=== PATIENT | female | born 1965 | race Caucasian/White ===

== ENCOUNTER 2016-07-04 00:38 | Emergency (ER) | payer SELFPAY ==
[~2016-07-04] VITALS: Ht 157.5 cm; Wt 62.0 kg
[~2016-07-04 00:38] MED LIST: DEPA500T OR; Z.0.NO CURRENT MEDS
[2016-07-04 00:40] VITALS: BP 126/71; PULSE 110; RESP 16; TEMP 98; O2SAT 98
[2016-07-04] MEDS ORDERED: DICL50TA3 PO (01:12)
[2016-07-04] MEDS ORDERED: AMOX500T PO (01:12)
[2016-07-04] MEDS ORDERED: ACETAMINOPHEN/HYDROcodone 325 MG/5 MG TAB PO ONE (01:15)
[2016-07-04] MEDS ORDERED: AMOXICILLIN (TRIHYDRATE) 500 MG CAP PO ONE (01:15)
--- NOTE | 2016-07-04 01:15 | PD ---
HPI Chief Complaint: Oral / Dental Pain or Problem Time Seen by Provider: 01:12 Travel History International Travel<30 days: No Contact w/Intl Traveler<30days: No Traveled to known affect area: No History of Present Illness HPI 50-year-old white female presents to emergency Department with complaints of dental pain. She states that she has had dental issues on and off for many years. She denies any fever or chills. She states there is increasing pain to her left lower mandible. [facility] Past Medical History Narrative Medical Seizure disorder Seizures: Yes (epilepsy, chronic) ?: Not Past Surgical History Surgical History: No Previous Surgery Social History Alcohol Use: Yes Tobacco Use: Yes Allergies-Medications (Allergen,Severity, Reaction): Coded Allergies: No Known Allergies (Verified , 07/04/16) Reported Meds & Prescriptions Reported Meds & Active Scripts Active Diclofenac Sodium DR (Diclofenac Sodium) 50 Mg Tabdr 50 Mg PO TID Amoxicillin 500 Mg Tab 1,000 Mg PO BID [id number] M1 500 Mg Tab 500 Mg OR Q12 30 Days Reported No Current Meds (Miscellaneous Medication) Misc Review of Systems Except as stated in HPI: all other systems reviewed are Neg Physical Exam Narrative GENERAL: Well-developed, well-nourished in no acute distress. Nontoxic appearing. HEAD: Normocephalic, atraumatic. EYES: Pupils equal round and reactive. Extraocular motions intact. No scleral icterus. No injection or drainage. ENT: TMs clear without erythema. The external auditory canals clear. Nose: clear . Posterior pharynx is pink and moist. No tonsillar edema or exudate. Uvula midline. Airway patent. The patient has severe diffuse periodontal disease with multiple, multiple dental caries. Positive gingival erythema and edema. No obvious single abscess NECK: Trachea midline.Supple, nontender, moves head freely. No central bony tenderness or spasm. CARDIOVASCULAR: Regular rate and rhythm without murmurs, gallops, or rubs. RESPIRATORY: Clear to auscultation. Breath sounds equal bilaterally. No wheezes , rales, or rhonchi. GASTROINTESTINAL: Abdomen soft, non-tender, nondistended. No hepato-splenomegaly , or palpable masses. No guarding. EXTREMITIES: No clubbing, cyanosis, or edema. No joint tenderness, effusion, or edema noted. BACK: Nontender without deformity or crepitance. No flank tenderness. Data Data Last Documented VS Vital Signs Date Time Temp Pulse Resp B/P Pulse Ox O2 Delivery O2 Flow Rate FiO2 07/04/16 00:40 98.0 110 16 126/71 98 Room Air Orders Amoxicillin (Trimox) (07/04/16 01:15) Acetamin-Hydrocod 325-5 Mg ([place] 5-325 (07/04/16 01:15) MDM Medical Decision Making Medical Screen Exam Complete: Yes Emergency Medical Condition: Yes Medical Record Reviewed: Yes Differential Diagnosis MDM: Moderate Differential diagnoses: Dental abscess, dental caries, osteitis, cellulitis Narrative Course Patient is given amoxicillin 500 mg and Lortab 5 a grams by mouth. This is dental caries, dentalgia Diagnosis Primary Impression: Dental caries Additional Impression: Dentalgia Patient Instructions: Narcotic given in the ED, General Instructions Additional Instructions: Rest. Saltwater gargles. Roe oil on cotton balls. Amoxicillin and diclofenac follow-up with a dentist as soon as possible. And return to the ER if any problems. Med/Other Pt SpecificInfo: Prescription(s) given Scripts Diclofenac Sodium DR 50 Mg Tabdr50 Mg PO TID #21 TAB Prov:Lilly Mathur MD 07/04/16 Amoxicillin 500 Mg Tab1,000 Mg PO BID #40 TAB Prov:Lilly Mathur MD 07/04/16 Disposition: 01 DISCHARGE HOME Condition: Stable Narciso Oneil Jul 04, 2016 01:14
== END 2016-07-04 02:05 | disposition home or self-care (01) ==
LOC: NEPB 00:38
DX: K02.9 Dental caries, unspecified (principal); Z72.0 Tobacco use
CPT/HCPCS: 99282

== ENCOUNTER 2017-07-22 09:08 | Emergency (ER) | payer SELFPAY ==
[~2017-07-22] VITALS: Ht 157.5 cm; Wt 62.0 kg
[~2017-07-22 09:08] MED LIST changes: +AMOX500T PO; +DICL50TA3 PO
[2017-07-22 09:11] VITALS: BP 133/62; PULSE 116; RESP 18; TEMP 100.5; O2SAT 98
--- NOTE | 2017-07-22 09:28 | PD ---
HPI Chief Complaint: Cold / Flu Symptoms Time Seen by Provider: 09:20 Travel History International Travel<30 days: No Contact w/Intl Traveler<30days: No Traveled to known affect area: No History of Present Illness HPI The patient is a 52-year-old female who presents to the emergency department for cough and cold symptoms of one days duration. The patient developed sore throat yesterday followed by headache, cough, nausea, body aches, and back pain. The cough is dry and nonproductive. She does have a history of tobacco use. She does endorse subjective fevers, chills, and sweats. She does complain of mild dysuria and some upper abdominal pain secondary to coughing. She denies any vomiting or diarrhea. She did have a sick contact last week, a child with influenza. She did not receive an influenza vaccination this year. Symptoms are moderate, there are no current alleviating or exacerbating factors. PFSH Past Medical History Diminished Hearing: No Seizures: Yes (epilepsy, chronic) Influenza Vaccination: No ?: Not Menopausal: Yes Tubal Ligation: Yes Past Surgical History Section: Yes Social History Alcohol Use: Yes Tobacco Use: Yes (06/05 ppd) Substance Use: No Allergies-Medications (Allergen,Severity, Reaction): Coded Allergies: No Known Allergies (Unverified , 07/22/17) Reported Meds & Prescriptions Reported Meds & Active Scripts Active No Active Prescriptions or Reported Medications Review of Systems Except as stated in HPI: all other systems reviewed are Neg General / Constitutional: Positive: Fever, Chills HENT: Positive: Headaches, Sore Throat, Congestion Cardiovascular: No: Chest Pain or Discomfort Respiratory: Positive: Cough Gastrointestinal: Positive: Nausea, Abdominal Pain (Upper abdominal pain secondary to coughing), No: Vomiting, Diarrhea Genitourinary: Positive: Dysuria Musculoskeletal: Positive: Myalgias Skin: No Rash Physical Exam Narrative GENERAL: Awake, alert, pleasant 52-year-old female who appears her stated age and is in no acute respiratory distress. SKIN: Focused skin assessment warm/dry. HEAD: Atraumatic. Normocephalic. EYES: Pupils equal and round. No scleral icterus. No injection or drainage. ENT: No nasal bleeding or discharge. Mild erythema but no exudate. TMs are translucent. EACs are clear. NECK: Trachea midline. No JVD. CARDIOVASCULAR: Regular, tachycardic with a heart rate of 110. RESPIRATORY: No accessory muscle use. Clear to auscultation. Breath sounds equal bilaterally. GASTROINTESTINAL: Abdomen soft, non-tender, nondistended. No rebound tenderness. MUSCULOSKELETAL: No obvious deformities. No clubbing. No cyanosis. No edema. NEUROLOGICAL: Awake and alert. No obvious cranial nerve deficits. Motor grossly within normal limits. Normal speech. PSYCHIATRIC: Appropriate mood and affect; insight and judgment normal. Data Data Last Documented VS Vital Signs Date Time Temp Pulse Resp B/P (MAP) Pulse Ox O2 Delivery O2 Flow Rate FiO2 07/22/17 10:43 16 07/22/17 09:11 100.5 116 133/62 (85) 98 Orders Orders Influenzae A/B Antigen (07/22/17 09:22) Chest, Single Ap (07/22/17 ) Urinalysis - C+S If Indicated (07/22/17 09:22) Acetaminophen (Tylenol) (07/22/17 09:30) Ondansetron Odt (Zofran Odt) (07/22/17 09:30) Prednisone (Deltasone) (07/22/17 10:00) Albuterol-Ipratropium Neb (Duoneb Neb) (07/22/17 10:00) Labs Laboratory Tests Test 07/22/17 09:11 Urine Color YELLOW Urine Turbidity CLEAR Urine pH 6.0 Urine Specific [place] 1.025 Urine Protein NEG mg/dL Urine Glucose (UA) NEG mg/dL Urine Ketones NEG mg/dL Urine Occult Blood MOD Urine Nitrite NEG Urine Bilirubin NEG Urine Urobilinogen 2.0 MG/DL Urine Leukocyte Esterase NEG Urine RBC 14 /hpf Urine WBC 1 /hpf Urine Squamous Epithelial Cells 1 /hpf Urine Bacteria RARE /hpf Urine Mucus FEW /lpf Microscopic Urinalysis Comment CULT NOT INDICATED MDM Medical Decision Making Medical Screen Exam Complete: Yes Emergency Medical Condition: Yes Medical Record Reviewed: Yes Interpretation(s) Laboratory Tests Test 07/22/17 09:11 Urine Color YELLOW Urine Turbidity CLEAR Urine pH 6.0 Urine Specific [place] 1.025 Urine Protein NEG mg/dL Urine Glucose (UA) NEG mg/dL Urine Ketones NEG mg/dL Urine Occult Blood MOD Urine Nitrite NEG Urine Bilirubin NEG Urine Urobilinogen 2.0 MG/DL Urine Leukocyte Esterase NEG Urine RBC 14 /hpf Urine WBC 1 /hpf Urine Squamous Epithelial Cells 1 /hpf Urine Bacteria RARE /hpf Urine Mucus FEW /lpf Microscopic Urinalysis Comment CULT NOT INDICATED Last Impressions Chest X-Ray 07/22/17 0000 Signed Impressions: Service Date/Time: Saturday, July 22, 2017 09:25 - CONCLUSION: 1. 6 mm smooth margined round nodule right lung. 2. No infiltrates seen. Kenney Bergeron MD Date/Time Source Procedure Growth Status 07/22/17 09:11 Nasal Aspirate Influenza Types A,B Antigen (GURPREET) - Final NEGATIVE FOR FLU A AND B ANTIGEN.... Complete Differential Diagnosis Differential diagnosis includes influenza, pneumonia, bronchitis, pyelonephritis , viral syndrome, URI, sepsis. Narrative Course Chest x-ray was obtained. Influenza screen was sent to lab. UA was sent to lab. The patient was administered Zofran 4 mg ODT and Tylenol 650 mg orally. Influenza screen is negative. Chest x-ray reveals 6 mm right round smooth lung nodule. UA is unremarkable. The patient has bronchitis and underlying viral syndrome, will be treated with prednisone, Zithromax, and albuterol inhaler. She is advised to follow-up with a primary physician. Return if symptoms worsen or progress. Stop smoking. Diagnosis Primary Impression: Bronchitis Additional Impression: Viral syndrome Patient Instructions: General Instructions Additional Instructions: Please provide a patient a copy of her chest x-ray results and lab results at discharge. Follow-up with her primary physician. Return if symptoms worsen or progress. Med/Other Pt SpecificInfo: Prescription(s) given Scripts Albuterol 8.5 GM Inh (Proair Hfa 8.5 GM Inh) 90 Mcg/Act Aer 2 PUFF INH Q6H Y for SHORTNESS OF BREATH, #1 INHALER 0 Refills 108 mcg/actuation Prov: Michael Covarrubias MD 07/22/17 Prednisone (Prednisone) 20 Mg Tab 40 MG PO DAILY for 5 Days, #10 TAB 0 Refills Take 40 mg (2 tablets) daily for 5 days Prov: Michael Covarrubias MD 07/22/17 Azithromycin (Zithromax Z-Dandy) 250 Mg Dspk 250 MG PO DIRECTED for Infection, #1 DSPK 0 Refills 500 MG (2 tabs) day 1, then 1 tab days 2-5. Prov: Michael Covarrubias MD 07/22/17 Disposition: 01 DISCHARGE HOME Condition: Stable Michael Covarrubias MD Jul 22, 2017 09:28
[2017-07-22] MEDS ORDERED: ONDANSETRON ODT 4 MG TAB PO ONE (09:30)
[2017-07-22] MEDS ORDERED: ACETAMINOPHEN 325 MG TAB PO ONE (09:30)
[2017-07-22 09:49] LABS: BACTERIA, URINE RARE /hpf; BILIRUBIN, URINE NEG (NEG); BLOOD, URINE MOD (NEG); GLUCOSE,URINE NEG (NEG); KETONE, URINE NEG (NEG); MUCUS URINE FEW /lpf (OCC); NITRITE,URINE NEG (NEG); SQUAMOUS EPITHELIAL CELL URINE 1 /hpf (0-5); URINE COLOR YELLOW (YELLW/STRAW); URINE LEUKOCYTE ESTERASE NEG (NEG)
[2017-07-22] MEDS ORDERED: RESP: ALBUTEROL 2.5 MG/IPRATROPIUM 0.5 MG NEB (SCH) NEB ONE (10:00)
[2017-07-22] MEDS ORDERED: predniSONE 20 MG TAB PO ONE (10:00)
--- NOTE | 2017-07-22 10:20 | RADRPT ---
EXAM DATE/TIME: 07/22/2017 09:25 [facility] COMPARISON: No previous studies available for comparison. INDICATIONS : Cough MEDICAL HISTORY : None. SURGICAL HISTORY : None. ENCOUNTER: Initial ACUITY: 1 day PAIN SCORE: 0/10 LOCATION: chest FINDINGS: A single view of the chest demonstrates the lungs to be symmetrically aerated. No infiltrate seen. 6 mm round nodule, probably calcified, in the right midlung.. No evidence of pleural effusion. The cardiomediastinal contours are unremarkable. Osseous structures are intact. CONCLUSION: 1. 6 mm smooth margined round nodule right lung. 2. No infiltrates seen. Kenney Bergeron MD on July 22, 2017 at 10:17 Board Certified Radiologist. This report was verified electronically.
[2017-07-22 10:43] VITALS: RESP 16
[2017-07-22] MEDS ORDERED: ALBUAER3 INH (11:24)
[2017-07-22] MEDS ORDERED: ZITHTAB PO (11:24)
[2017-07-22] MEDS ORDERED: PRED20 PO (11:24)
[2017-07-22 11:30] VITALS: BP 122/77; TEMP 97.8
== END 2017-07-22 11:40 | disposition home or self-care (01) ==
LOC: NEPD 09:08
DX: J40 Bronchitis, not specified as acute or chronic (principal); B34.9 Viral infection, unspecified; F17.200 Nicotine dependence, unspecified, uncomplicated
CPT/HCPCS: 71045; 81001; 87804; 94664; 99284; J7512

== ENCOUNTER 2017-09-17 10:42 | Inpatient (IN) | payer SELFPAY ==
[~2017-09-17 10:42] MED LIST changes: +ALBUAER3 INH; -AMOX500T PO; -DEPA500T OR; -DICL50TA3 PO; +PRED20 PO; -Z.0.NO CURRENT MEDS; +ZITHTAB PO
[2017-09-17 11:14] VITALS: BP 119/60; PULSE 74; RESP 18; TEMP 97.9; O2SAT 100
[2017-09-17] MEDS ORDERED: VALPROIC ACID 250 MG CAP PO ONE (12:00)
[2017-09-17] MEDS ORDERED: SODIUM CHLORIDE 0.9% FLUSH 10 ML FLUSH IVF PRN (12:00)
[2017-09-17 12:12] VITALS: O2SAT 96
--- NOTE | 2017-09-17 12:12 | PD ---
HPI Chief Complaint: Seizure Time Seen by Provider: 11:32 Travel History International Travel<30 days: No Contact w/Intl Traveler<30days: No Traveled to known affect area: No History of Present Illness HPI The patient is a 52-year-old female who presents to the emergency department for seizure. The patient has a history of seizures since age of 10, has undergone further workup in the past including MRI, CT, and EEG. The patient has been on multiple medications including Dilantin, phenobarbital, and Depakote. The patient states she had good results with Depakote at 300 mg twice a day. However, she stopped taking her medications secondary to insurance related issues. The patient states she was adopted from [facility] the age of 10, does not have a certificate and is unable to obtain assistance for insurance. The patient has been off of her medications for 2 years, states she had a seizure several months ago and then another seizure today. The patient had a witnessed seizure today that lasted approximately 1 minute while the patient was sitting down. The patient did not fall out of the chair or hit her head. However, she does note a left-sided headache that has been present for 2 days. She denies any photophobia, nausea, or vomiting. The patient denies any tongue trauma, does state her jaw is sore after having it clench. She also noted urinary incontinence. The seizure was witnessed by her daughter who is at bedside. PFSH Past Medical History Hx Anticoagulant Therapy: No Diminished Hearing: No Seizures: Yes (epilepsy, chronic) ?: Not Menopausal: Yes Tubal Ligation: Yes Past Surgical History Section: Yes Social History Alcohol Use: Yes (rarely) Tobacco Use: Yes (1/2 ppd) Substance Use: No Allergies-Medications (Allergen,Severity, Reaction): Coded Allergies: No Known Allergies (Unverified , 07/22/17) Reported Meds & Prescriptions Reported Meds & Active Scripts Active No Active Prescriptions or Reported Medications Review of Systems Except as stated in HPI: all other systems reviewed are Neg Eyes: No: Blurred Vision, Visual changes HENT: Positive: Headaches, Other (Jaw pain), No: Neck Pain Cardiovascular: No: Chest Pain or Discomfort Respiratory: No: Shortness of Breath Genitourinary: Positive: Incontinence Musculoskeletal: No: Myalgias, Arthralgias Neurologic: Positive: Seizures Physical Exam Narrative GENERAL: Awake, alert, nontoxic-appearing 52-year-old female who appears her stated age and is in no acute respiratory distress. SKIN: Focused skin assessment warm/dry. HEAD: Atraumatic. Normocephalic. EYES: Pupils equal and round. Pupils are 3 mm bilateral and reactive. ENT: No nasal bleeding or discharge. Mucous membranes pink and moist. No visible tongue laceration. The patient's jaw appears aligned that she is able to open and close the jaw. NECK: Trachea midline. No JVD. CARDIOVASCULAR: Regular rate and rhythm. No murmur appreciated. RESPIRATORY: No accessory muscle use. Clear to auscultation. Breath sounds equal bilaterally. GASTROINTESTINAL: Abdomen soft, non-tender, nondistended. No rebound tenderness. MUSCULOSKELETAL: No obvious deformities. No clubbing. No cyanosis. No edema. NEUROLOGICAL: Awake and alert. No obvious cranial nerve deficits. Motor grossly within normal limits. Normal speech. Nonfocal. Oriented 4. Follows commands without difficulty. Back: No tenderness over the thoracic or lumbar vertebrae. PSYCHIATRIC: Appropriate mood and affect; insight and judgment normal. Data Data Last Documented VS Vital Signs Date Time Temp Pulse Resp B/P (MAP) Pulse Ox O2 Delivery O2 Flow Rate FiO2 09/17/17 14:26 63 16 110/57 (74) 97 Room Air 09/17/17 11:14 97.9 Orders Orders Complete Blood Count With Diff (09/17/17 11:54) Valproic Acid (Depakene) (09/17/17 11:54) Blood Glucose (09/17/17 11:54) Ecg Monitoring (09/17/17 11:54) Iv Access Insert/Monitor (09/17/17 11:54) Oximetry (09/17/17 11:54) Comprehensive Metabolic Panel (09/17/17 11:54) Sodium Chloride 0.9% Flush (Ns Flush) (09/17/17 12:00) Valproic Acid (Depakene) (09/17/17 12:00) Ct Brain W/O Iv Contrast(Rout) (09/17/17 ) Mri Brain W/O Contrast (09/17/17 ) Aspirin Chew (Aspirin Chew) (09/17/17 14:45) Consult Neurology (09/17/17 ) Admit To Inpatient (09/17/17 ) Inpatient Certification (09/17/17 ) Admit Order (Ed Use Only) (09/17/17 15:01) Labs Laboratory Tests Test 09/17/17 12:09 White Blood Count 7.7 TH/MM3 Red Blood Count 4.99 MIL/MM3 Hemoglobin 13.7 GM/DL Hematocrit 41.3 % Mean Corpuscular Volume 82.7 FL Mean Corpuscular Hemoglobin 27.4 PG Mean Corpuscular Hemoglobin Concent 33.1 % Red Cell Distribution Width 14.6 % Platelet Count 247 TH/MM3 Mean Platelet Volume 7.3 FL Neutrophils (%) (Auto) 58.6 % Lymphocytes (%) (Auto) 34.4 % Monocytes (%) (Auto) 4.2 % Eosinophils (%) (Auto) 1.6 % Basophils (%) (Auto) 1.2 % Neutrophils # (Auto) 4.5 TH/MM3 Lymphocytes # (Auto) 2.7 TH/MM3 Monocytes # (Auto) 0.3 TH/MM3 Eosinophils # (Auto) 0.1 TH/MM3 Basophils # (Auto) 0.1 TH/MM3 CBC Comment DIFF FINAL Differential Comment Blood Urea Nitrogen 13 MG/DL Creatinine 0.65 MG/DL Random Glucose 76 MG/DL Total Protein 6.7 GM/DL Albumin 3.1 GM/DL Calcium Level 8.4 MG/DL Alkaline Phosphatase 78 U/L Aspartate Amino Transf (AST/SGOT) 21 U/L Alanine Aminotransferase (ALT/SGPT) 21 U/L Total Bilirubin 0.3 MG/DL Sodium Level 138 MEQ/L Potassium Level 4.3 MEQ/L Chloride Level 112 MEQ/L Carbon Dioxide Level 21.0 MEQ/L Anion Gap 5 MEQ/L Estimat Glomerular Filtration Rate 96 ML/MIN Valproic Acid (Depakene) Level 4 MCG/ML MDM Medical Decision Making Medical Screen Exam Complete: Yes Emergency Medical Condition: Yes Medical Record Reviewed: Yes Interpretation(s) Last Impressions Head CT 09/17/17 0000 Signed Impressions: Service Date/Time: Sunday, September 17, 2017 12:31 - CONCLUSION: There is an abnormal area of low-attenuation in the left parietal lobe. Given the appearance, this could represent cytotoxic edema related to recent ischemia. Alternatively it is possible this is a chronic finding. Consider either correlating with prior outside imaging studies to evaluate for chronicity of this finding or perform MRI for further characterization. Juan Mcnally MD Brain MRI 09/17/17 0000 Signed Impressions: Service Date/Time: Sunday, September 17, 2017 14:00 - CONCLUSION: 1. Acute infarct left parietal lobe. No midline shift or mass effect. 2. Nonspecific white matter changes. Tee Resendez MD Laboratory Tests Test 09/17/17 12:09 White Blood Count 7.7 TH/MM3 Red Blood Count 4.99 MIL/MM3 Hemoglobin 13.7 GM/DL Hematocrit 41.3 % Mean Corpuscular Volume 82.7 FL Mean Corpuscular Hemoglobin 27.4 PG Mean Corpuscular Hemoglobin Concent 33.1 % Red Cell Distribution Width 14.6 % Platelet Count 247 TH/MM3 Mean Platelet Volume 7.3 FL Neutrophils (%) (Auto) 58.6 % Lymphocytes (%) (Auto) 34.4 % Monocytes (%) (Auto) 4.2 % Eosinophils (%) (Auto) 1.6 % Basophils (%) (Auto) 1.2 % Neutrophils # (Auto) 4.5 TH/MM3 Lymphocytes # (Auto) 2.7 TH/MM3 Monocytes # (Auto) 0.3 TH/MM3 Eosinophils # (Auto) 0.1 TH/MM3 Basophils # (Auto) 0.1 TH/MM3 CBC Comment DIFF FINAL Differential Comment Blood Urea Nitrogen 13 MG/DL Creatinine 0.65 MG/DL Random Glucose 76 MG/DL Total Protein 6.7 GM/DL Albumin 3.1 GM/DL Calcium Level 8.4 MG/DL Alkaline Phosphatase 78 U/L Aspartate Amino Transf (AST/SGOT) 21 U/L Alanine Aminotransferase (ALT/SGPT) 21 U/L Total Bilirubin 0.3 MG/DL Sodium Level 138 MEQ/L Potassium Level 4.3 MEQ/L Chloride Level 112 MEQ/L Carbon Dioxide Level 21.0 MEQ/L Anion Gap 5 MEQ/L Estimat Glomerular Filtration Rate 96 ML/MIN Valproic Acid (Depakene) Level 4 MCG/ML Differential Diagnosis Differential diagnosis includes seizure, noncompliance, breakthrough seizure, hyponatremia, hypocalcemia, hypoglycemia, intracranial tumor, intracranial hemorrhage, subarachnoid hemorrhage. Narrative Course IV was established, labs are drawn and sent, and the patient was placed on cardiac telemetry monitoring and continuous pulse oximetry monitoring. The patient was administered Depakote [address] of the brain was obtained. CT the brain reveals either chronic finding in the left parietal region versus cytotoxic edema from recent ischemic event. Therefore, MRI of the brain was obtained. MRI of the brain reveals acute left parietal infarct. The patient will be admitted for further evaluation, may benefit from carotid ultrasound, evaluation of cholesterol, and echocardiogram. The patient was administered aspirin 162 mg orally. Physician Communication Physician Communication [facility] were paged for admission. I discussed the patient with Dr. Rajput who agrees with admission. Diagnosis Primary Impression: CVA (cerebral vascular accident) Qualified Codes: I63.9 - Cerebral infarction, unspecified Additional Impression: Seizure Admitting Information Admitting Physician Requests: Admit Scripts No Active Prescriptions or Reported Meds Condition: Stable Michael Covarrubias MD Sep 17, 2017 12:12
[2017-09-17 12:30] LABS: AUTOMATED NEUTROPHIL # 4.5 TH/MM3 (1.8-7.7); BASOPHIL # 0.1 TH/MM3 (0-0.2); BASOPHIL % 1.2 % (0.0-2.0); EOSINOPHIL # 0.1 TH/MM3 (0-0.4); EOSINOPHIL % 1.6 % (0.0-4.0); HEMATOCRIT 41.3 % (35.0-46.0); HEMOGLOBIN 13.7 GM/DL (11.6-15.3); LYMPH % 34.4 % (9.0-44.0); LYMPHOCYTE # 2.7 TH/MM3 (1.0-4.8); MEAN CELL VOLUME 82.7 FL (80.0-100.0); MEAN CORPUSCULAR HEMOGLOBIN 27.4 PG (27.0-34.0); MEAN CORPUSCULAR HGB CONC 33.1 % (32.0-36.0); MEAN PLATELET VOLUME 7.3 FL (7.0-11.0); MONO % 4.2 % (0.0-8.0); MONOCYTE # 0.3 TH/MM3 (0-0.9); NEUT % 58.6 % (16.0-70.0); PLATELET COUNT 247 TH/MM3 (150-450); RED BLOOD COUNT 4.99 MIL/MM3 (4.00-5.30); RED CELL DISTRIBUTION WIDTH 14.6 % (11.6-17.2); WHITE BLOOD COUNT 7.7 TH/MM3 (4.0-11.0)
[2017-09-17 12:44] LABS: ALBUMIN 3.1 GM/DL (3.4-5.0); ALT (GPT) 21 U/L (10-53); AST (GOT) 21 U/L (15-37); BLOOD UREA NITROGEN 13 MG/DL (7-18); CALCIUM 8.4 MG/DL (8.5-10.1); CHLORIDE 112 MEQ/L (98-107); CREATININE 0.65 MG/DL (0.50-1.00); GLOMERULAR FILTRATION RATE 96 ML/MIN (>89); GLUCOSE,RANDOM 76 MG/DL (74-106); SODIUM (NA) 138 MEQ/L (136-145)
[2017-09-17 12:52] LABS: ALKALINE PHOSPHATASE 78 U/L (45-117); TOTAL BILIRUBIN ADULT 0.3 MG/DL (0.2-1.0); TOTAL PROTEIN 6.7 GM/DL (6.4-8.2)
--- NOTE | 2017-09-17 13:02 | RADRPT ---
EXAM DATE/TIME: 09/17/2017 12:31 [facility] COMPARISON: No previous studies available for comparison. INDICATIONS : Seizure this morning. History of seizures. RADIATION DOSE: 56.35 CTDIvol (mGy) MEDICAL HISTORY : Seizures. SURGICAL HISTORY : None. ENCOUNTER: Initial ACUITY: 1 day PAIN SCALE: 0/10 LOCATION: cranial TECHNIQUE: Multiple contiguous axial images were obtained of the head. Using automated exposure control and adj ustment of the mA and/or kV according to patient size, radiation dose was kept as low as reasonably a chievable to obtain optimal diagnostic quality images. DICOM format image data is available electro nically for review and comparison. FINDINGS: CEREBRUM: Ventricles are within normal limits. There is a wedge-shaped area of low density in the left parietal mid and low convexity which extends to the cortical surface. No evidence of midline shift, mass les ion, hemorrhage or acute infarction. No extra-axial fluid collections are seen. POSTERIOR FOSSA: The cerebellum and brainstem demonstrate no acute abnormality. The 4th ventricle is midline. The ce rebellopontine angle is unremarkable. EXTRACRANIAL: Visualized sinuses are clear. SKULL: The calvaria is intact. No evidence of skull fracture. CONCLUSION: There is an abnormal area of low-attenuation in the left parietal lobe. Given the appearance, this co uld represent cytotoxic edema related to recent ischemia. Alternatively it is possible this is a clerical administrator peyton finding. Consider either correlating with prior outside imaging studies to evaluate for chronicit y of this finding or perform MRI for further characterization. Juan Mcnally MD on September 17, 2017 at 12:57 Board Certified Radiologist. This report was verified electronically.
[2017-09-17 14:26] VITALS: BP 110/57; PULSE 63; RESP 16; O2SAT 97
--- NOTE | 2017-09-17 14:34 | RADRPT ---
EXAM DATE/TIME: 09/17/2017 14:00 [facility] COMPARISON: CT BRAIN W/O CONTRAST, September 17, 2017, 12:31. INDICATIONS : Abnormal CT scan. Seizure. MEDICAL HISTORY : Seizures. SURGICAL HISTORY : section. Tubal ligation. ENCOUNTER: Initial ACUITY: 1 day PAIN SCORE: 0/10 LOCATION: head TECHNIQUE: Multiplanar, multisequence MRI of the brain was performed without contrast. FINDINGS: CEREBRUM: Acute infarct in the left posterior parietal lobe. The ventricles are normal for age. No evidence of midline shift, mass lesion or hemorrhage. No extraaxial fluid collections are seen. The pituitary gland and suprasellar cistern are normal in configuration. WHITE MATTER: Scattered foci of bright T2 signal abnormalities are seen in the white matter. POSTERIOR FOSSA: The cerebellum and brainstem are intact. The 4th ventricle is midline. The cerebellopontine angle is unremarkable. The cerebellar tonsils are normal in position. DIFFUSION IMAGING: There is restricted diffusion seen in left parietal lobe consistent with acute infarction. EXTRACRANIAL: The visualized portions of the orbits and paranasal sinuses are unremarkable. CONCLUSION: 1. Acute infarct left parietal lobe. No midline shift or mass effect. 2. Nonspecific white matter changes. Tee Resendez MD on September 17, 2017 at 14:29 Board Certified Radiologist. This report was verified electronically.
[2017-09-17] MEDS ORDERED: ASPIRIN 81 MG CHEW TAB CHEW ONE (14:45)
[2017-09-17 15:15] VITALS: O2SAT 97
[2017-09-17] MEDS ORDERED: GLUCAGON 1 MG/ML VIAL OTHER PRN (15:15)
[2017-09-17] MEDS ORDERED: DEXTROSE 50% IN WATER 50 ML VIAL(D50) IV PUSH PRN (15:15)
[2017-09-17] MEDS ORDERED: SODIUM CHLORIDE 0.9% FLUSH 10 ML FLUSH IV FLUSH PRN (15:15)
[2017-09-17] MEDS: SODIUM CHLOR 0.9% 1000 ML INJ 1,000 ML IV SCH (15:21)
[2017-09-17] MEDS: INSULIN ASPART SUPPLEMENTAL SCALE SQ SCH ×2 (17:00→21:00)
--- NOTE | 2017-09-17 17:04 | RADRPT ---
EXAM DATE/TIME: 09/17/2017 16:07 [place] COMPARISON: No previous studies available for comparison. INDICATIONS : CVA. MEDICAL HISTORY : Seizures. SURGICAL HISTORY : Tubal ligation. section. ENCOUNTER: Initial ACUITY: 1 day PAIN SCORE: 3/10 LOCATION: Bilateral neck PEAK SYSTOLIC VELOCITIES (cm/sec): ICA/CCA RATIO: Right: 1.0 Left: 1.3 ICA: Right: 102 Left: 123 CCA: Right: 99 Left: 97 ECA: Right: 90 Left: 68 VERTEBRAL: Right: 84 antegrade Left: 62 antegrade Elevated flow velocities and ICA/CCA ratios have been found to correlate with increased degrees of vessel stenosis, calculated as percentage of diameter relative to a normal segment of distal ICA/CCA FINDINGS: RIGHT CAROTID: No significant stenosis is visualized. The waveforms are within normal limits. LEFT CAROTID: No significant stenosis is visualized. The waveforms are within normal limits. VERTEBRAL ARTERIES: Antegrade flow is seen in both vertebral arteries. MISCELLANEOUS: None. CONCLUSION: Negative for hemodynamically significant stenosis Mark Correa MD FACR on September 17, 2017 at 17:02 Board Certified Radiologist. This report was verified electronically.
--- NOTE | 2017-09-17 17:08 | HHI.HP ---
[facility] No Primary Care Physician Admission Diagnosis CVA, seizure Diagnoses: Chief Complaint: Seizure Travel History International Travel<30 Days: No Contact w/Intl Traveler <30 Da: No Traveled to Known Affected Are: No History of Present Illness Patient is a very pleasant 52-year-old right-handed female with known history of seizure disorder since 10 years old petite mal type of seizure. Per patient when these occur usually with some incontinence. Patient has been off medication since 2009. In the past had been placed on Keppra, Dilantin, Depakote unclear why this was but patient has been off meds since 2009. No follow-up. Daughter is at bedside who is very involved with her care. She brought in her mom as she noted her mom to be having recently on and off seizure actually just blank stares that lasts for few minutes but more frequently for the past 2 months. However this morning patient had generalized tonic-clonic seizure while she was in a chair. Daughter from the other room heard unusual sounds coming from her mom's throat and when she came out to check on her witnessed generalized tonic convulsion activity. Patient however is amnesic of event. Patient was brought in here and up admitted for further evaluation. Patient denies any fever chest pain shortness of breath denies any recent URI symptoms diarrhea or urinary symptoms. Patient states a few days ago had some would have some left-sided headache of a "different type" . Otherwise no nausea or vomiting. Admitted for further evaluation. Review of Systems Constitutional: DENIES: Fever, Weight loss, Chills, Change in appetite Eyes: DENIES: Blurred vision, Double Vision Ears, nose, mouth, throat: DENIES: Tinnitus, Ear Pain, Epistaxis, Odynophagia Respiratory: DENIES: Cough, Hemoptysis, Sputum production, Shortness of breath Cardiovascular: DENIES: Chest pain, Palpitations, Dyspnea on Exertion, Lower Extremity Edema, Orthopnea Gastrointestinal: DENIES: Black stools, Bloody stools, Difficulty Swallowing, Anorexia Genitourinary: DENIES: Urgency, Hematuria, Vaginal discharge Musculoskeletal: DENIES: Joint pain, Stiffness Integumentary: DENIES: Pruritus Hematologic/lymphatic: DENIES: Bruising Immunologic/allergic: DENIES: Urticaria Neurologic: DENIES: Headache, Speech Problems, Tremor Psychiatric: DENIES: Suicidal Ideation, Homicidal Ideation Past Family Social History Past Medical History History of seizure disorder since 10 years of age but it mild type. She was tried on different kind of medications she is familiar with Keppra, Dilantin, Depakote but had been noncompliant for the past year now because of no insurance. Past Surgical History 2 sections and tubal ligation Reported Medications None currently. Allergies: Coded Allergies: No Known Allergies (Unverified , 07/22/17) Family History Family history positive for gastric cancer mother sister has some form of [employer] cancer Social History Smokes half to 1 pack per day very rare alcohol use Denies any substance abuse Physical Exam Vital Signs Vital Signs Date Time Temp Pulse Resp B/P (MAP) Pulse Ox O2 Delivery O2 Flow Rate FiO2 09/17/17 15:15 97 21 09/17/17 14:26 63 16 110/57 (74) 97 Room Air 09/17/17 12:12 96 Room Air 09/17/17 11:14 97.9 74 18 119/60 (79) 100 Physical Exam GENERAL: Awake alert oriented 3 not in any form of distress speech clear SKIN: No rashes, ecchymoses or lesions. Cool and dry. HEAD: Atraumatic. Normocephalic. No temporal or scalp tenderness. EYES: Pupils equal round and reactive. Extraocular motions intact. No scleral icterus. No injection or drainage. ENT: Nose without bleeding Throat without erythema, tonsillar hypertrophy or exudate. Uvula midline. Airway patent. NECK: Trachea midline. No JVD or lymphadenopathy. Supple, nontender, no meningeal signs. No bruit CARDIOVASCULAR: Regular rate and rhythm without murmurs, gallops, or rubs. RESPIRATORY: Clear to auscultation. Breath sounds equal bilaterally. No wheezes , rales, or rhonchi. GASTROINTESTINAL: Abdomen soft, non-tender, nondistended. No guarding. MUSCULOSKELETAL: Extremities without clubbing, cyanosis, or edema. No joint tenderness, effusion, or edema noted. No calf tenderness. Negative Homans sign bilaterally. Gait steady NEUROLOGICAL: Awake and alert. Cranial nerves II through XII intact. Motor and sensory grossly within normal limits. Five out of 5 muscle strength in all muscle groups. Normal speech. Laboratory Laboratory Tests Test 09/17/17 12:09 White Blood Count 7.7 Red Blood Count 4.99 Hemoglobin 13.7 Hematocrit 41.3 Mean Corpuscular Volume 82.7 Mean Corpuscular Hemoglobin 27.4 Mean Corpuscular Hemoglobin Concent 33.1 Red Cell Distribution Width 14.6 Platelet Count 247 Mean Platelet Volume 7.3 Neutrophils (%) (Auto) 58.6 Lymphocytes (%) (Auto) 34.4 Monocytes (%) (Auto) 4.2 Eosinophils (%) (Auto) 1.6 Basophils (%) (Auto) 1.2 Neutrophils # (Auto) 4.5 Lymphocytes # (Auto) 2.7 Monocytes # (Auto) 0.3 Eosinophils # (Auto) 0.1 Basophils # (Auto) 0.1 CBC Comment DIFF FINAL Differential Comment Blood Urea Nitrogen 13 Creatinine 0.65 Random Glucose 76 Total Protein 6.7 Albumin 3.1 Calcium Level 8.4 Alkaline Phosphatase 78 Aspartate Amino Transf (AST/SGOT) 21 Alanine Aminotransferase (ALT/SGPT) 21 Total Bilirubin 0.3 Sodium Level 138 Potassium Level 4.3 Chloride Level 112 Carbon Dioxide Level 21.0 Anion Gap 5 Estimat Glomerular Filtration Rate 96 Valproic Acid (Depakene) Level 4 Result Diagram: 09/17/17 1209 09/17/17 1209 Imaging Last Impressions Head CT 09/17/17 0000 Signed Impressions: Service Date/Time: Sunday, September 17, 2017 12:31 - CONCLUSION: There is an abnormal area of low-attenuation in the left parietal lobe. Given the appearance, this could represent cytotoxic edema related to recent ischemia. Alternatively it is possible this is a chronic finding. Consider either correlating with prior outside imaging studies to evaluate for chronicity of this finding or perform MRI for further characterization. Juan Mcnally MD Brain MRI 09/17/17 0000 Signed Impressions: Service Date/Time: Sunday, September 17, 2017 14:00 - CONCLUSION: 1. Acute infarct left parietal lobe. No midline shift or mass effect. 2. Nonspecific white matter changes. Tee Resendez MD Caprini VTE Risk Assessment Caprini VTE Risk Assessment: Mod/High Risk (score >= 2) Caprini Risk Assessment Model Point Value = 1 Point Value = 2 Point Value = 3 Point Value = 5 Age 41-60 Minor surgery BMI > 25 kg/m2 Swollen legs Varicose veins or History of unexplained or recurrent spontaneous Oral contraceptives or hormone replacement Sepsis (< 1 month) Serious lung disease, including pneumonia (< 1 month) Abnormal pulmonary function Acute myocardial infarction Congestive heart failure (< 1 month) History of inflammatory bowel disease Medical patient at bed rest Age 61-74 Arthroscopic surgery Major open surgery (> 45 min) Laparoscopic surgery (> 45 min) Malignancy Confined to bed (> 72 hours) Immobilizing plaster cast Central venous access Age >= 75 History of VTE Family history of VTE Factor V Leiden Prothrombin [id number] Lupus anticoagulant Anticardiolipin antibodies Elevated serum homocysteine Heparin-induced thrombocytopenia Other congenital or acquired thrombophilia Stroke (< 1 month) Elective arthroplasty Hip, pelvis, or leg fracture Acute spinal cord injury (< 1 month) Prophylaxis Regimen Total Risk Factor Score Risk Level Prophylaxis Regimen 0-1 Low Early ambulation 2 Moderate Order ONE of the following: *Sequential Compression Device (SCD) *Heparin 5000 units SQ BID 3-4 Higher Order ONE of the following medications: *Heparin 5000 units SQ TID *Enoxaparin/Lovenox 40 mg SQ daily (WT < 150 kg, CrCl > 30 mL/min) *Enoxaparin/Lovenox 30 mg SQ daily (WT < 150 kg, CrCl > 10-29 mL/min) *Enoxaparin/Lovenox 30 mg SQ BID (WT < 150 kg, CrCl > 30 mL/min) AND/OR *Sequential Compression Device (SCD) 5 or more Highest Order ONE of the following medications: *Heparin 5000 units SQ TID (Preferred with Epidurals) *Enoxaparin/Lovenox 40 mg SQ daily (WT < 150 kg, CrCl > 30 mL/min) *Enoxaparin/Lovenox 30 mg SQ daily (WT < 150 kg, CrCl > 10-29 mL/min) *Enoxaparin/Lovenox 30 mg SQ BID (WT < 150 kg, CrCl > 30 mL/min) AND *Sequential Compression Device (SCD) Assessment and Plan Assessment and Plan 52-year-old right handed Acute prior left parietal lobe infarction. Patient clinically looks good no gross neuro deficit. Monitoring neuro vital signs Get carotid ultrasound 2D echo and telemetry. Holter monitoring Started aspirin. Neurology consult PT OT consult in a.m. Lipid panel in a.m. New onset generalized tonic-clonic seizures-witnessed by daughter with history of absence type seizure-in the past was on different types of anti-seizure medications noncompliance and daughter states recently with increased episodes of "spacing out" Get EEG. Will give 1 g IV Dilantin now then 100 mg q. 8 Get neurology consult for recommendation. Smoker. Patient counseled. Teds and SCDs for DVT prophylaxis Physician Certification 2 Midnight Certification Type: Admission for Inpatient Services Order for Inpatient Services The services are ordered in accordance with Medicare regulations or non- Medicare payer requirements, as applicable. In the case of services not specified as inpatient-only, they are appropriately provided as inpatient services in accordance with the 2-midnight benchmark. Estimated LOS (days): 2 days is the estimated time the patient will need to remain in the hospital, assuming treatment plan goals are met and no additional complications. Post-Hospital Plan: Not yet determined Jennifer Rajput MD Sep 17, 2017 17:08
[2017-09-17 17:57] VITALS: BP 115/56; PULSE 69; RESP 14; O2SAT 99
--- NOTE | 2017-09-17 18:39 | MB ---
cc: Angeli Blake MD DATE: 09/17/2017 REASON FOR CONSULTATION: She is a 52-year-old seen in neurological consultation in regard to seizure recurrence today. HISTORY OF PRESENT ILLNESS: The patient is describing that this morning, she had a grand mal seizure. The daughter is at bedside and describes a fairly typical grand mal seizure. A couple of weeks ago, she had some probable complex partial seizures. She has had seizures for a long time. I did follow her in the office and the last visit was several years ago. It appears that she has moved out of the area and came back, and she is not insured and she is not taking seizure medications. She describes that the medication that helped her seizure the most was Depakote, and I remember prescribing Depakote to her. She was also taking phenobarbital, so perhaps the last medication she was taking, and this was used apparently because of the cost. She was adopted and she is having difficulty getting her paperwork together as the patient and the daughter describe that her paperwork from adoption was not completed. Anyhow, she is not taking any medications and she is living with her daughter. Interestingly, evaluation here today includes an MRI brain, according to the staff, reporting an acute left parietal small stroke. Blood pressure is normal. EKG showing sinus rhythm. NEUROLOGIC EXAMINATION: Fairly benign. She appears to be back to baseline. She is alert, pleasant, oriented. Visual mcclure full. She has poor dentition, and her speech and language were normal, probably a little bit of tongue injury. She had incontinence today with the seizure. There is no facial weakness. She has a strong admitting interviewer and strong lower extremity motor exam at bedside. Reflexes 1-2+ throughout. Plantar responses flexor. ASSESSMENT: 1. Seizure recurrence today. She has not been taking anticonvulsant medications due to cost and the fact that her immigration paperwork is apparently incomplete and she is not able to get a job, etc. She was seen by me in the past and had been on seizure medications. Apparently, Depakote controlled her seizures in the past. She was given Depakote here today. I have not had a chance to review all the data in the computer, but we will continue with the Depakote. Would suggest giving her a full loading dose, 1 gram of Depakote, followed by 500 mg twice a day. 2. Acute stroke, apparently left parietal. This was an MRI finding. She is in sinus rhythm. Further evaluation to include carotid ultrasound, echocardiogram, cardiac monitoring, checking lipid profile. Aspirin 162 mg was given. I will follow the neurological course. Thank you for asking us to assist in her care. MD LINDY Sal/SB , 06:10 PM , 06:38 PM
[2017-09-17] MEDS ORDERED: PHENYTOIN INJ 1,000 MG in SODIUM CHLORIDE 0.9% INJ 100 ML IV ONE (19:00)
[2017-09-17 19:33] LABS: HEMOGLOBIN A1C 4.8 % (4.3-6.0)
[2017-09-17 20:00] VITALS: BP 112/52; PULSE 63; RESP 18; TEMP 98.1; O2SAT 98
[2017-09-17] MEDS ORDERED: PHENYTOIN SODIUM 100 MG CAP PO SCH (22:00)
[2017-09-17] MEDS: DIVALPROEX DR 500 MG TABEC PO SCH (22:58)
[2017-09-17] MEDS: SODIUM CHLORIDE 0.9% FLUSH 10 ML FLUSH IV FLUSH SCH (22:58)
[2017-09-18] VITALS (8 sets, daily range): BP systolic 113–136; BP diastolic 57–74; PULSE 53–77; RESP 17–20; TEMP 97.7–98.3; O2SAT 95–99
[2017-09-18] MEDS: SODIUM CHLOR 0.9% 1000 ML INJ 1,000 ML IV SCH ×2 (05:20→16:18)
[2017-09-18] MEDS: SODIUM CHLORIDE 0.9% FLUSH 10 ML FLUSH IV FLUSH SCH ×2 (07:14→21:26)
[2017-09-18] MEDS: INSULIN ASPART SUPPLEMENTAL SCALE SQ SCH ×4 (07:14→21:00)
[2017-09-18] MEDS: ASPIRIN 325 MG TAB PO SCH (07:36)
[2017-09-18] MEDS: DIVALPROEX DR 500 MG TABEC PO SCH ×2 (07:36→21:25)
[2017-09-18 08:46] LABS: PHENYTOIN (DILANTIN) 0.5 MCG/ML (10.0-20.0)
[2017-09-18 08:47] LABS: CHOLESTEROL/ HDL RATIO 3.5 RATIO; HDL CHOLESTEROL 59.3 MG/DL (40.0-60.0)
[2017-09-18] MEDS ORDERED: ACETAMINOPHEN 325 MG TAB PO PRN (14:45)
--- NOTE | 2017-09-18 15:26 | EKG ---
Date Performed: 09/18/2017 Time Performed: 04:02:58 PTAGE: 52 years EKG: Sinus rhythm WITH SINUS ARRHYTHMIA NORMAL ECG NO PREVIOUS TRACING DOCTOR: Oli Juarez Interpretating Date/Time 09/18/2017 15:21:22
--- NOTE | 2017-09-18 17:35 | ECHRPT ---
Indication: CVA/TIA CONCLUSIONS Normal left ventricular size. Wall thickness is normal. Normal LV systolic function (EF 60%). Trace mitral valve regurgitation. There is trace tricuspid valve regurgitation. The estimated pulmonary arterial pressure is 30 mmHg. BP: 114 / 57 HR: 67 Rhythm: Sinus MEASUREMENTS (Male / Female) Normal Values Technical Quality:Fair 2D ECHO LV Diastolic Diameter PLAX 4.2 cm 4.2 - 5.9 / 3.9 - 5.3 cm LV Systolic Diameter PLAX 3.0 cm IVS Diastolic Thickness 0.9 cm 0.6 - 1.0 / 0.6 - 0.9 cm LVPW Diastolic Thickness 0.9 cm 0.6 - 1.0 / 0.6 - 0.9 cm LV Relative Wall Thickness 0.4 RV Internal Dim ED PLAX 2.7 cm LVOT Diameter 1.7 cm Aortic Root Diameter 2.8 cm LA Systolic Diameter LX 2.9 cm 3.0 - 4.0 / 2.7 - 3.8 cm M-MODE AV Cusp Separation MM 1.7 cm DOPPLER AV Peak Velocity 131.0 cm/s AV Peak Gradient 6.9 mmHg AV Mean Gradient 3.0 mmHg AV Velocity Time Integral 25.7 cm LVOT Peak Velocity 75.9 cm/s LVOT Peak Gradient 2.3 mmHg LVOT Velocity Time Integral 14.2 cm AV Area Cont Eq vti 1.3 cm AV Area Cont Eq pk 1.3 cm Mitral E Point Velocity 72.1 cm/s Mitral A Point Velocity 58.7 cm/s Mitral E to A Ratio 1.2 LV E' Lateral Velocity 8.9 cm/s Mitral E to LV E' Lateral Ratio 8.1 LV E' Septal Velocity 9.2 cm/s Mitral E to LV E' Septal Ratio 7.9 TR Peak Velocity 223.0 cm/s TR Peak Gradient 19.9 mmHg Right Atrial Pressure 10.0 mmHg Pulmonary Artery Systolic Pressu 29.9 mmHg Right Ventricular Systolic Press 29.9 mmHg PV Peak Velocity 36.1 cm/s PV Peak Gradient 0.5 mmHg FINDINGS LEFT VENTRICLE Normal left ventricular size. The left ventricular systolic function is normal with an estimated ejection fraction of 60%. Wall thickness is normal. RIGHT VENTRICLE Normal right ventricular size and systolic function. LEFT ATRIUM The left atrial size is normal. RIGHT ATRIUM The right atrial size is normal. ATRIAL SEPTUM No atrial level shunt is demonstrated by color flow Doppler interrogation. AORTA The aortic root and proximal ascending aorta are not well visualized. MITRAL VALVE Trace mitral valve regurgitation. AORTIC VALVE Trileaflet aortic valve. No aortic valve stenosis or regurgitation. TRICUSPID VALVE There is trace tricuspid valve regurgitation. The estimated pulmonary arterial pressure is 29.9 mmHg. PULMONARY VALVE No pulmonary valve regurgitation or stenosis. VESSELS The inferior vena cava is normal in size. PERICARDIUM No pericardial effusion. Laura Ken MD, FACC (Electronically Signed) Final Date:18 September 2017 17:34
--- NOTE | 2017-09-18 20:40 | HHI.PR ---
Review/Management Daily Summary 09/18 no seizure recurrence will review eeg echo seen normal bedside brief neuro exam ldl high but she can nor afford any meds staff trying to arrange seizure meds and outpt f/u depakote 500 bid asa and possibly statin Subjective Subjective Comments No acute events reported No headache No chest pain No dyspnea Active Medications Current Medications Medications (Trade) Dose Ordered Sig/Ok Route Start Time Stop Time Status Last Admin (NS Flush) 2 ml BID IV FLUSH 09/17/17 21:00 09/17/17 22:58 (NS Flush) 2 ml UNSCH PRN IV FLUSH 09/17/17 15:15 Sodium Chloride 1,000 ml @ 70 mls/hr [id number] IV 09/17/17 15:02 09/17/17 15:21 (Aspirin) 325 mg DAILY PO 09/18/17 09:00 09/18/17 07:36 (NovoLOG SUPPLEMENTAL SCALE) 1 ACHS SQ 09/17/17 17:00 (D50w (Vial) Inj) 50 ml UNSCH PRN IV PUSH 09/17/17 15:15 (Glucagon Inj) 1 mg UNSCH PRN OTHER 09/17/17 15:15 (Dilantin) 100 mg Q8HR PO 09/17/17 22:00 Future Hold (Depakote Dr) 500 mg Q12HR PO 09/17/17 22:00 09/18/17 07:36 (Tylenol) 650 mg Q4H PRN PO 09/18/17 14:45 09/18/17 16:20 Allergies Allergies Coded Allergies No Known Allergies (Unverified07/22/17) Exam I&O / VS 09/18/17 09/18/17 09/19/17 14:59 22:59 06:59 Intake Total 350 ml Balance 350 ml Intake IV Total 350 ml # Voids 2 Vital Signs Date Time Temp Pulse Resp B/P (MAP) Pulse Ox O2 Delivery O2 Flow Rate FiO2 09/18/17 17:56 53 09/18/17 12:53 56 09/18/17 12:00 97.7 62 19 120/57 (78) 99 09/18/17 09:35 62 09/18/17 08:00 97.8 56 20 133/63 (86) 95 09/18/17 04:00 98.3 67 18 114/57 (76) 98 09/18/17 00:00 98.1 77 18 136/74 (94) 98 Objective Radiology Results Last [address] 09/17/17 0000 Signed Impressions: Service Date/Time: Sunday, September 17, 2017 12:31 - CONCLUSION: There is an abnormal area of low-attenuation in the left parietal lobe. Given the appearance, this could represent cytotoxic edema related to recent ischemia. Alternatively it is possible this is a chronic finding. Consider either correlating with prior outside imaging studies to evaluate for chronicity of this finding or perform MRI for further characterization. Juan Mcnally MD Carotid Artery Ultrasound 09/17/17 0000 Signed Impressions: Service Date/Time: Sunday, September 17, 2017 16:07 - CONCLUSION: Negative for hemodynamically significant stenosis Mark Correa MD FACR Brain MRI 09/17/17 0000 Signed Impressions: Service Date/Time: Sunday, September 17, 2017 14:00 - CONCLUSION: 1. Acute infarct left parietal lobe. No midline shift or mass effect. 2. Nonspecific white matter changes. Tee Resendez MD Micro and Labs Laboratory Tests Test 09/18/17 07:04 Triglycerides Level 71 Cholesterol Level 208 LDL Cholesterol 135 HDL Cholesterol 59.3 Cholesterol/HDL Ratio 3.50 Phenytoin (Dilantin) Level 0.5 Angeli Blake MD Sep 18, 2017 20:40
--- NOTE | 2017-09-18 20:47 | HHI.PR ---
Subjective Remarks Follow-up for acute stroke, seizure activity. Patient is currently doing well. No acute concerns. She later on complained of some headache. No fever or chills. Objective Vitals Vital Signs Date Time Temp Pulse Resp B/P (MAP) Pulse Ox O2 Delivery O2 Flow Rate FiO2 09/18/17 17:56 53 09/18/17 12:53 56 09/18/17 12:00 97.7 62 19 120/57 (78) 99 09/18/17 09:35 62 09/18/17 08:00 97.8 56 20 133/63 (86) 95 09/18/17 04:00 98.3 67 18 114/57 (76) 98 09/18/17 00:00 98.1 77 18 136/74 (94) 98 I/O 09/17/17 09/17/17 09/17/17 09/18/17 09/18/17 09/18/17 07:00 15:00 23:00 07:00 15:00 23:00 Intake Total 5 ml 350 ml Balance 5 ml 350 ml Intake IV Total 5 ml 350 ml # Voids 1 2 Result Diagram: 09/17/17 1209 09/17/17 1209 Imaging Last Impressions Head CT 09/17/17 0000 Signed Impressions: Service Date/Time: Sunday, September 17, 2017 12:31 - CONCLUSION: There is an abnormal area of low-attenuation in the left parietal lobe. Given the appearance, this could represent cytotoxic edema related to recent ischemia. Alternatively it is possible this is a chronic finding. Consider either correlating with prior outside imaging studies to evaluate for chronicity of this finding or perform MRI for further characterization. Juan Mcnally MD Carotid Artery Ultrasound 09/17/17 0000 Signed Impressions: Service Date/Time: Sunday, September 17, 2017 16:07 - CONCLUSION: Negative for hemodynamically significant stenosis Mark Correa MD FACR Brain MRI 09/17/17 0000 Signed Impressions: Service Date/Time: Sunday, September 17, 2017 14:00 - CONCLUSION: 1. Acute infarct left parietal lobe. No midline shift or mass effect. 2. Nonspecific white matter changes. Tee Resendez MD Objective Remarks GENERAL: Alert, oriented 3, NAD. SKIN: Warm and dry. HEAD: Normocephalic. EYES: No scleral icterus. No injection or drainage. NECK: Supple, trachea midline. No JVD or lymphadenopathy. CARDIOVASCULAR: Regular rate and rhythm without murmurs, gallops, or rubs. RESPIRATORY: Breath sounds equal bilaterally. No accessory muscle use. GASTROINTESTINAL: Abdomen soft, non-tender, nondistended. MUSCULOSKELETAL: No cyanosis, or edema. Neurological: No focal neurological deficits. BACK: Nontender without obvious deformity. No CVA tenderness. Procedures Echocardiogram 09/18/2017 Normal left ventricular size. Wall thickness is normal. Normal LV systolic function (EF 60%). Trace mitral valve regurgitation. There is trace tricuspid valve regurgitation. The estimated pulmonary arterial pressure is 30 mmHg. A/P Problem List: (1) CVA (cerebral vascular accident) ICD Code: I63.9 - Cerebral infarction, unspecified Status: Acute (2) Seizure ICD Code: R56.9 - Unspecified convulsions Status: Acute Assessment and Plan Patient is a very pleasant 52-year-old right-handed female with known history of seizure disorder since 10 years old petite mild type of seizure. Patient's daughter brought patient to the emergency department due to seizure activities. Patient apparently had grand mal seizures at home. Acute left parietal lobe stroke Acute on chronic seizure activities Neurology following. Continue aspirin 325 mg daily. Hemoglobin A1c 4.8. LDL 135 Will start patient on Lipitor 40 mg nightly. Echocardiogram largely unremarkable Discussed with neurology, Dr. Blake wants to look at the EEG today. If patient remains stable, possible discharge tomorrow 09/19/2017. Headache -continue symptomatic treatment with Tylenol. Full code.SCDs Problem Qualifiers (1) CVA (cerebral vascular accident): Qualified Codes: I63.9 - Cerebral infarction, unspecified Noah Márquez DO Sep 18, 2017 20:47
[2017-09-18] MEDS ORDERED: ATORVASTATIN 40 MG TAB PO SCH (21:00)
[2017-09-19 00:19] VITALS: BP 117/56; PULSE 57; RESP 16; TEMP 97.9; O2SAT 95
[2017-09-19 04:15] VITALS: BP 115/59; PULSE 69; RESP 17; TEMP 98; O2SAT 97
[2017-09-19 08:00] VITALS: PULSE 50
[2017-09-19] MEDS: INSULIN ASPART SUPPLEMENTAL SCALE SQ SCH ×3 (08:00→13:06)
--- NOTE | 2017-09-19 08:26 | MG ---
cc: Angeli Blake MD INDICATIONS: An EEG was obtained on this 52-year-old patient being evaluated for recurrent seizures. DESCRIPTION: This patient is described as awake during the study. There are theta and some alpha rhythms posteriorly. There are beta rhythms frontally. Throughout the study, there is some intermittent, occasional spike and slow wave activity that seems to be maximum frontally, but seen in a generalized manner. There are some small sharp and spike waves. Photic stimulation disclosed no significant change. There is no ictal activity. There is predominantly awake, but probably some drowsiness in the recording as well. INTERPRETATION: Abnormal electroencephalogram because of occasional spike and slow wave activity in a generalized manner, suggesting an epileptiform abnormality, but no ictal pattern. Angeli Blake MD [facility]/ , 09:01 PM , 09:28 PM
[2017-09-19 08:32] VITALS: BP 122/64; PULSE 67; RESP 20; TEMP 98.1; O2SAT 100
[2017-09-19] MEDS: ASPIRIN 325 MG TAB PO SCH (09:04)
[2017-09-19] MEDS: SODIUM CHLORIDE 0.9% FLUSH 10 ML FLUSH IV FLUSH SCH (09:04)
[2017-09-19] MEDS: DIVALPROEX DR 500 MG TABEC PO SCH (09:04)
[2017-09-19] MEDS: SODIUM CHLOR 0.9% 1000 ML INJ 1,000 ML IV SCH (09:56)
[2017-09-19 12:11] VITALS: BP 111/54; PULSE 60; RESP 20; TEMP 98.2; O2SAT 98
[2017-09-19] MEDS ORDERED: ATOR40TA16 PO (12:49)
[2017-09-19] MEDS ORDERED: DIVA500T PO (12:49)
[2017-09-19] MEDS ORDERED: ASA325 PO (12:49)
--- NOTE | 2017-09-19 12:57 | HHI.PR ---
Subjective Remarks Follow-up for acute stroke, seizure activity. Patient is currently doing well. Ambulating well. No acute concerns. No seizure activities overnight. Objective Vitals Vital Signs Date Time Temp Pulse Resp B/P (MAP) Pulse Ox O2 Delivery O2 Flow Rate FiO2 09/19/17 12:11 98.2 60 20 111/54 (73) 98 09/19/17 08:32 98.1 67 20 122/64 (83) 100 09/19/17 08:00 50 09/19/17 04:15 98.0 69 17 115/59 (77) 97 09/19/17 00:19 97.9 57 16 117/56 (76) 95 09/18/17 20:32 21 09/18/17 20:20 97.8 62 17 113/58 (76) 97 09/18/17 17:56 53 09/18/17 12:53 56 I/O 09/18/17 09/18/17 09/18/17 09/19/17 09/19/17 09/19/17 07:00 15:00 23:00 07:00 15:00 23:00 Intake Total 850 ml 1000 ml Balance 850 ml 1000 ml Intake Oral 500 ml 1000 ml IV Total 350 ml # Voids 2 1 3 2 # Bowel Movements 0 0 Result Diagram: 09/17/17 1209 09/17/17 1209 Imaging Last Impressions Head CT 09/17/17 0000 Signed Impressions: Service Date/Time: Sunday, September 17, 2017 12:31 - CONCLUSION: There is an abnormal area of low-attenuation in the left parietal lobe. Given the appearance, this could represent cytotoxic edema related to recent ischemia. Alternatively it is possible this is a chronic finding. Consider either correlating with prior outside imaging studies to evaluate for chronicity of this finding or perform MRI for further characterization. Juan Mcnally MD Carotid Artery Ultrasound 09/17/17 0000 Signed Impressions: Service Date/Time: Sunday, September 17, 2017 16:07 - CONCLUSION: Negative for hemodynamically significant stenosis Mark Correa MD FACR Brain MRI 09/17/17 0000 Signed Impressions: Service Date/Time: Sunday, September 17, 2017 14:00 - CONCLUSION: 1. Acute infarct left parietal lobe. No midline shift or mass effect. 2. Nonspecific white matter changes. Tee Resendez MD Objective Remarks GENERAL: Alert, oriented 3, NAD. SKIN: Warm and dry. HEAD: Normocephalic. EYES: No scleral icterus. No injection or drainage. NECK: Supple, trachea midline. No JVD or lymphadenopathy. CARDIOVASCULAR: Regular rate and rhythm without murmurs, gallops, or rubs. RESPIRATORY: Breath sounds equal bilaterally. No accessory muscle use. GASTROINTESTINAL: Abdomen soft, non-tender, nondistended. MUSCULOSKELETAL: No cyanosis, or edema. Neurological: No focal neurological deficits. BACK: Nontender without obvious deformity. No CVA tenderness. Procedures Echocardiogram 09/18/2017 Normal left ventricular size. Wall thickness is normal. Normal LV systolic function (EF 60%). Trace mitral valve regurgitation. There is trace tricuspid valve regurgitation. The estimated pulmonary arterial pressure is 30 mmHg. A/P Problem List: (1) CVA (cerebral vascular accident) ICD Code: I63.9 - Cerebral infarction, unspecified Status: Acute (2) Seizure ICD Code: R56.9 - Unspecified convulsions Status: Acute Assessment and Plan Patient is a very pleasant 52-year-old right-handed female with known history of seizure disorder since 10 years old petite mild type of seizure. Patient's daughter brought patient to the emergency department due to seizure activities. Patient apparently had grand mal seizures at home. Acute left parietal lobe stroke Acute on chronic seizure activities Neurology following. Continue aspirin 325 mg daily. Hemoglobin A1c 4.8. LDL 135 Will cotinue Lipitor 40 mg nightly. Echocardiogram largely unremarkable Discussed with neurology, Dr. Blake is okay for patient to go home today. Continue divalproex 500 mg every 12 hours. Headache -continue symptomatic treatment with Tylenol. Full code.SCDs Discharge patient to home Condition on discharge: Improved Regular Diet as tolerated Ad Jo activity Rx written: Aspirin 325 daily Lipitor 40 mg nightly Divalproex 500 mg every 12 hours. Follow-up with primary care physician within 1 week and neurology within 3 weeks. Problem Qualifiers (1) CVA (cerebral vascular accident): Qualified Codes: I63.9 - Cerebral infarction, unspecified Noah Márquez DO Sep 19, 2017 12:57 pm
--- NOTE | 2017-09-20 16:57 | HM ---
Date Performed: 09/18/2017 Time Performed: 10:50:00 HOOKUP DATE: 09/18/17 10:50:00 AM Tue ANALYSIS START TIME: 09/18/2017 10:55:00 AM ANALYSIS END TIME: 09/19/2017 10:05:59 AM PATIENT AGE: 52 PATIENT HEIGHT PATIENT WEIGHT DRUG LIST PATIENT DIAGNOSIS: CVA SEIZURE TEST NARRATIVE: The patient's average heart rate was 57 BPM. No episodes of tachycardia wer e noted. Heart rates less than 50 BPM were noted 39% of the time. No pauses exceeding 2.0 second s were noted. 1 ventricular ectopics, which represented < 1% of the total beat count, were noted. The highest ventricular ectopic frequency occurred from 03:00 PM to 04:00 PM Tue. During this time 1 VE(s) occurred. Ventricular ectopics were observed as 1 isolated beat(s) only. No couplets or ru ns were noted. 10 supraventricular ectopics, which represented < 1% of the total beat count, were noted. The highest supraventricular ectopic frequency occurred from 07:00 PM to 08:00 PM Tue. Duri ng this time 2 SVE(s) occurred. No episodes of ST depression (defined as -1.0 mm or more) were no jaspreet in channel 1. No episodes of ST depression (defined as -1.0 mm or more) were noted in channel 2. No episodes of ST depression (defined as -1.0 mm or more) were noted in channel 3. TEST INTERPRETATION: 24 Hour Holter Monitor- Dr. Mcbride Patient was monitored for 23 hours a nd 11 minutes. Average heart rate of 57 beats per minute. Minimum heart rate of 45 beats per minute. Maximum heart rate of 108 beats per minute. There was one premature ventricular contraction, and 8 pr emature atrial contractions, and 1 ventricular couplet. Benign Holter monitor. Signed by : Bismark Mcbride
== END 2017-09-19 15:03 | disposition home or self-care (01) | DRG 66 ==
LOC: NEPD 10:42 → NEDA 15:03 → N05B 20:36
PROVIDERS: ADMIT Hospitalist; ATTEND Hospitalist
DX: I63.9 Cerebral infarction, unspecified (principal); G40.409 Other generalized epilepsy and epileptic syndromes, not intractable, without status epilepticus; F17.210 Nicotine dependence, cigarettes, uncomplicated; R32 Unspecified urinary incontinence; Z91.14 Patient's other noncompliance with medication regimen
CPT/HCPCS: 70450; 70551; 80053; 80061; 80164; 80185; 82948; 83036; 85025; 93005; 93225; 93226; 93306; 93880; 95819; J1165; J7030

== ENCOUNTER 2018-01-29 23:12 | Inpatient (IN) ==
[2018-01-30] MEDS ORDERED: Sod Chloride 0.9% Inj 1,000 ML IV.SIG ONE (02:09)
[2018-01-30] MEDS ORDERED: Morphine Inj 4 MG/ML Vial IV.PUSH ONE ×2 (02:09→03:05)
--- NOTE | 2018-01-30 02:47 | XR ---
EXAM DATE: 01/30/2018 2:42 AM EDT AGE/SEX: 52 years / Female INDICATIONS: Chest pain. CLINICAL DATA: This is the patient's initial encounter. Patient reports that signs and symptoms have been present for 1 day and indicates a pain score of 4/10. MEDICAL/SURGICAL HISTORY: None. None. COMPARISON: [facility] [place], CHEST SINGLE AP, 07/22/2017. . FINDINGS: A single AP view of the chest demonstrates the lungs to be symmetrically aerated without evidence of mass, infiltrate or effusion. The cardiomediastinal contours are unremarkable. Osseous structures a re intact. CONCLUSION: No evidence of acute cardiopulmonary disease. Electronically signed by: Juan Bright MD 01/30/2018 2:46 AM EDT
--- NOTE | 2018-01-30 02:53 | ED ---
HPI General Chief Complaint: Abdominal Pain Stated Complaint: ABD pain, nausea Time Seen by Provider: 01/30/18 02:03 Source: patient Mode of arrival: ambulatory Limitations: no limitations History of Present Illness HPI narrative: Patient is a 52-year-old female with history of seizures, CVA who presents to the emergency room with complaints of abdominal pain. Patient reports that around 8 to 8:30 PM tonight, she began to have epigastric pain with nausea. Patient reports that she then had [place] take out for dinner on 9 PM, since then, she has been feeling nauseous and some vomiting. Patient reports that she has been having normal bowel movements, she has not been having any diarrhea. Patient reports concerns as her abdominal pain goes from epigastrium and radiates to her back bilaterally. Patient reports that nothing makes her pain better or worse. Denies any chest pain or shortness of breath. Patient reports only history of 2 C-sections as her abdominal surgeries. Related Data Home Medications Medication Instructions Recorded Confirmed atorvastatin [Lipitor] 40 mg PO DAILY 01/30/18 01/30/18 divalproex [Depakote] 500 mg PO BID 01/30/18 01/30/18 Allergies Allergy/AdvReac Type Severity Reaction Status Date / Time No Known Allergies Allergy Verified 01/29/18 23:34 Review of Systems ROS: all other systems reviewed are negative [facility] Medical History Medical History CVA (cerebral vascular accident) (Acute) delivery delivered (Acute) Epilepsia (Acute) Hypercholesteremia (Acute) Social History Social History Substance History: No History of Abuse Smoking Status: Current every day smoker Tobacco Type: Cigarettes How Often Do You Have a Drink Containing Alcohol: Never Recent Travel in [facility] within the Last 8 Weeks: No Recent Out of Country Travel within the Last 8 Weeks: No Immunization History Tetanus Immunization: Unsure Hx Influenza Vaccine This Season: No Exam Narrative Exam Narrative: GENERAL: mild distress SKIN: Focused skin assessment warm/dry. HEAD: Atraumatic. Normocephalic. EYES: Pupils equal and round. No scleral icterus. No injection or drainage. ENT: No nasal bleeding or discharge. Mucous membranes pink and moist. NECK: Trachea midline. No JVD. CARDIOVASCULAR: Regular rate and rhythm. No murmur appreciated. RESPIRATORY: No accessory muscle use. Clear to auscultation. Breath sounds equal bilaterally. GASTROINTESTINAL: Abdomen soft, increased tenderness to upper abdomen, nondistended. Hepatic and splenic margins not palpable. MUSCULOSKELETAL: No obvious deformities. No clubbing. No cyanosis. No edema. NEUROLOGICAL: Awake and alert. No obvious cranial nerve deficits. Motor grossly within normal limits. Normal speech. PSYCHIATRIC: Appropriate mood and affect; insight and judgment normal. Course Initial Documented Vital Signs Temperature 97.6 F 01/29/18 23:34 Pulse Rate 68 01/29/18 23:34 Respiratory Rate 16 01/29/18 23:34 Blood Pressure 131/61 01/29/18 23:34 Pulse Oximetry 98 01/29/18 23:34 Last Documented Vital Signs Temperature 97.6 F 01/29/18 23:34 Pulse Rate 68 01/29/18 23:34 Respiratory Rate 16 01/29/18 23:34 Blood Pressure 131/61 01/29/18 23:34 Pulse Oximetry 98 01/29/18 23:34 Medical Decision Making MDM Narrative Medical decision making narrative: During the course of the patients emergency department visit, the patients history, examination, and differential diagnosis were reviewed with the patient. The patient was placed on a cardiac rehabilitation specialist with oximetry and frequent blood pressure monitoring. The patient had an IV access obtained and blood work sent for analysis. The patient was initially provided IVF as well as Morphine for pain control CT of abdomen and pelvis concerning for acute cholecystitis - zosyn ordered, plan to admit to medicine service with general surgery consult in the morning. Will keep patient NPO Medical Screen Exam Complete: Yes Emergency Medical Condition: Yes Differential Diagnosis Differential Diagnosis: Pancreatitis, cholecystitis, gastritis, gastroenteritis , electrolyte abnormality, ACS, arrhythmia Medical Records Medical records reviewed: Yes I reviewed the patient's medical records. Lab Data Lab results reviewed: Yes I reviewed the patient's lab results. Result diagrams: 01/30/18 02:30 01/30/18 02:30 Lab Results 01/30/18 01/30/18 01/30/18 Range/Units 02:30 02:30 03:12 WBC 9.3 (4.0-11.0) th/mm3 RBC 5.32 H (4.00-5.30) mil/mm3 Hgb 15.6 H (11.6-15.3) gm/dL Hct 45.6 (35.0-46.0) % MCV 85.8 (80.0-100.0) fL MCH 29.3 (27.0-34.0) pg MCHC 34.1 (32.0-36.0) % RDW 15.2 (11.6-17.2) % Plt Count 219 (150-450) th/mm3 MPV 8.9 (7.0-11.0) fL Neut % (Auto) 60.9 (16.0-70.0) % Lymph % (Auto) 29.9 (9.0-44.0) % [place] % (Auto) 6.3 (0.0-8.0) % Eos % (Auto) 2.0 (0.0-4.0) % Baso % (Auto) 0.9 (0.0-2.0) % Neut # (Auto) 5.7 (1.8-7.7) th/mm3 Lymph # (Auto) 2.8 (1.0-4.8) th/mm3 [place] # (Auto) 0.6 (0.0-0.9) th/mm3 Eos # (Auto) 0.2 (0.0-0.4) th/mm3 Baso # (Auto) 0.1 (0.0-0.2) th/mm3 WBC Differential . Differential Comment Auto diff final Sodium 145 (136-145) meq/L Potassium 4.4 (3.5-5.1) meq/L Chloride 113 H (98-107) meq/L Carbon Dioxide 24.4 (21.0-32.0) meq/L Anion Gap 8 (5-15) meq/L BUN 32 H (7-18) mg/dL Creatinine 0.82 (0.50-1.00) mg/dL Estimated GFR 73 L (>89) mL/min Random Glucose 125 H (74-106) mg/dL Calcium 8.3 L (8.5-10.1) mg/dL Total Bilirubin 0.3 (0.2-1.0) mg/dL AST 23 (15-37) U/L ALT 30 (10-53) U/L Alkaline Phosphatase 65 (45-117) U/L Total Protein 7.5 (6.4-8.2) g/dL Albumin 3.4 (3.4-5.0) g/dL Lipase 119 (73-393) U/L Urine Color Yellow (Yellw/Straw) Urine Clarity Hazy H (Clear) Urine pH 5.0 (5.0-8.5) Ur Specific [place] 1.028 (1.002-1.035) Urine Protein Negative (Neg-Trace) mg/dL Urine Glucose (UA) Negative (Negative) mg/dL Urine Ketones Trace H (Negative) mg/dL Urine Occult Blood Moderate H (Negative) Urine Nitrate Negative (Negative) Urine Bilirubin Negative (Negative) Urine Urobilinogen Less than 2 (Less than 2) mg/dL Ur Leukocyte Esterase Negative (Negative) Urine RBC 21 H (0-3) /hpf Urine WBC 2 (0-5) /hpf Ur Squamous Epith Cells <1 (0-5) /hpf Hyaline Casts 3 (0-3) /lpf Urine Mucus Few H (Occasional) /lpf Micro UA Comment Culture not ind Ur Microscopic Review Not Reportable Urine Culture Comments Culture not ind Imaging Data Attestation: I personally reviewed and interpreted this imaging study as follows : Radiologist's impression: Abdomen/Pelvis CT 01/30/18 02:09 CONCLUSION: 1. CT findings typical of acute cholecystitis in the proper clinical setting. Stones are present. 2. No other acute abnormality demonstrated. Aorta is atherosclerotic. Chest X-Ray 01/30/18 02:09 CONCLUSION: No evidence of acute cardiopulmonary disease. ECG Data EKG Prior to Arrival: No Attestation: I personally reviewed and interpreted this ECG as follows: Interpretation: EKG at 0131: Normal sinus rhythm at 64 bpm, QT/QTC 401/410, there are no acute ST or T-wave changes Discharge Plan Discharge Disposition Patient Disposition: 30 Still Patient Discharge Condition Condition: Stable Discharge Details Diagnosis: Acute cholecystitis Physicians Team ED Provider: Janice London Primary Care Provider: UNKNOWN, Rxs /Orders / Referrals /Forms Prescriptions: No Action atorvastatin [Lipitor] 40 mg Tablet 40 mg PO DAILY RF: 0 divalproex [Depakote] 500 mg Tablet,Delayed Release (Dr/Ec) 500 mg PO BID RF: 0 Status ED Status: Admitted Observation Patient
[2018-01-30 02:55] LABS: Baso # (Auto) 0.1 th/mm3 (0.0-0.2); Baso % (Auto) 0.9 % (0.0-2.0); Eos # (Auto) 0.2 th/mm3 (0.0-0.4); Hematocrit 45.6 % (35.0-46.0); Hemoglobin 15.6 gm/dL (11.6-15.3); Lymph # (Auto) 2.8 th/mm3 (1.0-4.8); Lymph % (Auto) 29.9 % (9.0-44.0); Mean Corpuscular HGB Conc 34.1 % (32.0-36.0); Mean Corpuscular Hemoglobin 29.3 pg (27.0-34.0); Mean Corpuscular Volume 85.8 fL (80.0-100.0); Mean Platelet Volume 8.9 fL (7.0-11.0); Mono # (Auto) 0.6 th/mm3 (0.0-0.9); Mono % (Auto) 6.3 % (0.0-8.0); Neut # (Auto) 5.7 th/mm3 (1.8-7.7); Neut % (Auto) 60.9 % (16.0-70.0); Platelet Count 219 th/mm3 (150-450); Red Blood Count 5.32 mil/mm3 (4.00-5.30); Red Cell Distribution Width 15.2 % (11.6-17.2); White Blood Count 9.3 th/mm3 (4.0-11.0)
[2018-01-30 03:25] LABS: Alanine Aminotransferase 30 U/L (10-53); Albumin 3.4 g/dL (3.4-5.0); Alkaline Phosphatase 65 U/L (45-117); Anion Gap 8 meq/L (5-15); Aspartate Aminotransferase 23 U/L (15-37); Blood Urea Nitrogen 32 mg/dL (7-18); Calcium 8.3 mg/dL (8.5-10.1); Carbon Dioxide 24.4 meq/L (21.0-32.0); Chloride 113 meq/L (98-107); Glomerular Filtration Rate 73 mL/min (>89); Glucose,Random 125 mg/dL (74-106); Lipase 119 U/L (73-393); Potassium 4.4 meq/L (3.5-5.1); Sodium 145 meq/L (136-145); Total Protein 7.5 g/dL (6.4-8.2)
[2018-01-30 03:46] LABS: Bilirubin,Urine Negative (Negative); Clarity,Urine Hazy (Clear); Color,Urine Yellow (Yellw/Straw); Glucose,Urine (UA) Negative (Negative); Hyaline Casts,Urine 3 /lpf (0-3); Leukocyte Esterase,Urine Negative (Negative); Mucus,Urine Few /lpf (Occasional); Nitrite,Urine Negative (Negative); Specific Gravity,Urine 1.028 (1.002-1.035); Squamous Epithelial Cell,Urine <1 /hpf (0-5)
--- NOTE | 2018-01-30 04:33 | CT ---
EXAM DATE: 01/30/2018 3:56 AM EDT AGE/SEX: 52 years / Female INDICATIONS: Upper abdominal pain. CLINICAL DATA: This is the patient's initial encounter. Patient reports that signs and symptoms have been present for 1 day and indicates a pain score of 10/10. MEDICAL/SURGICAL HISTORY: Cerebrovascular disease. section. ORAL CONTRAST: No oral contrast ingested. RADIATION DOSE: 6.64 CTDI (mGy) COMPARISON: No prior exams available for comparison. TECHNIQUE: Multiple contiguous axial images were obtained through the abdomen and pelvis following b olus infusion of 96 ml Omnipaque 350 (iohexol) nonionic water-soluble contrast as a single exam dos e. No oral contrast ingested. Using automated exposure control and adjustment of the mA and/or kV ac cording to patient size, radiation dose was kept as low as reasonably achievable to obtain optimal di agnostic quality images. DICOM format image data is available electronically for review and comparis on. FINDINGS: Lower Lungs: The visualized lower lungs are clear. Liver: The liver has a homogeneous density without space-occupying lesion. There is no dilation of th e biliary tree. Wall thickening and pericholecystic fluid seen of the gallbladder. Multiple 1 cm ston es are present. No duct stone or ductal dilatation seen. Spleen: Homogeneous density without enlargement. Pancreas: Unremarkable without mass or calcification. Kidneys: Normal in size and shape. No evidence of mass or hydronephrosis. Adrenal Glands: Unremarkable. Aorta: Atherosclerotic abdominal aorta. No aneurysm. Bowel/Mesentery: The bowel loops are grossly unremarkable. The cecum and sigmoid colon have a normal configuration. The appendix is well-visualized and normal. Abdominal Wall: Intact. Retroperitoneum: No evidence of adenopathy in the retrocrural, para-aortic, or deep pelvic regions. Bladder: Contours are smooth. Reproductive Organs: No abnormal masses or calcifications seen. Inguinal: The inguinal region is unremarkable without evidence of adenopathy. Bony Structures: Unremarkable. Post Contrast: No abnormal areas of enhancement seen. CONCLUSION: 1. CT findings typical of acute cholecystitis in the proper clinical setting. Stones are present. 2. No other acute abnormality demonstrated. Aorta is atherosclerotic. Electronically signed by: Juan Bright MD 01/30/2018 4:32 AM EDT
[2018-01-30] MEDS ORDERED: Piperacil/Tazo 3.375 GM Premix 50 ML IV.SIG ONE (05:21)
[2018-01-30] MEDS ORDERED: Bisacodyl 10 MG Supp RECTAL PRN (05:46)
[2018-01-30] MEDS ORDERED: Piperacil/Tazo 3.375 GM Premix 50 ML IV.SIG SCH (05:48)
--- NOTE | 2018-01-30 06:14 | P.HPIM ---
History of Present Illness Primary Care Physician: UNKNOWN History of Present Illness: 52-year-old female with a history of CVA, seizures who presents with constant sharp epigastric abdominal pain radiating to bilateral back starting around 8: 30 PM, accompanied by nausea with nonbloody vomiting.Patient denies any chest pain or shortness of breath. Denies any fevers or chills. Inpatient Certification: I certify that the inpatient services were ordered in accordance with Medicare regulations governing the order. This includes certification that hospital inpatient services are reasonable and necessary and in the case of services not specified as inpatient-only under 42 CFR 419.22(n), that they are appropriately provided as inpatient services in accordance to with the 2-midnight benchmark under 43 CFR 412.3(e) Estimated Total Length of Stay (Days): 2 Plans for Post Hospital Care: Not yet determined Review of Systems All other systems reviewed negative except as stated in HPI PMFSH - History History Provided By: Patient - Medical History Medical History: Medical History (Last Reviewed 01/30/18 @ 02:52 by Janice London) CVA (cerebral vascular accident) delivery delivered Epilepsia Hypercholesteremia - Family History Family History: Family History (Last Updated 01/30/18 @ 06:10 by Jonh Goode MD) Brother Lung cancer Sister Breast cancer Father Family estrangement Mother Stomach cancer - Tobacco History Tobacco Use In Past 30 Days: Yes Smoking Status: Current every day smoker Tobacco Type: Cigarettes - Alcohol History How Often Do You Have a Drink Containing Alcohol: Never - Substance Use History Substance History: No History of Abuse - Travel History Recent Travel in the [place] Within the Last 8 Weeks: No Recent Travel Out of the Country Within the Last 8 Weeks: No - Immunization History Tetanus Immunization: Unsure Hx Influenza Vaccine This Season: No Medications and Allergies Active Medications: Active Medications Al Hydroxide/Mg Hydroxide (Milk Of Magnesia Liq) 30 ml PO Q12H PRN PRN Reason: Mild Constipation Atorvastatin Calcium (Lipitor) 40 mg PO DAILY TREMAYNE Bisacodyl (Dulcolax Supp) 10 mg RECTAL DAILY PRN PRN Reason: SEVERE CONSITIPATION Divalproex Sodium (Depakote Dr) 500 mg PO BID TREMAYNE Sodium Chloride (Ns Inj) 1,000 mls @ 100 mls/hr IV.CONT .Q10H TREMAYNE Piperacillin/Tazobactam/Dextrose (Zosyn 3.375 Gm Premix) 50 mls @ 100 mls/hr IV.SIG Q6H TREMAYNE Last Admin: 01/30/18 06:06 Dose: Not Given Lactulose (Lactulose Liq) 30 ml PO DAILY PRN PRN Reason: SEVERE CONSITIPATION Sennosides (Senokot) 17.2 mg PO Q12H PRN PRN Reason: Moderate Constipation Sodium Chloride (Ns Flush) 2 ml IV.FLUSH PRN PRN PRN Reason: FLUSH AFTER USING IV ACCESS Allergies Allergy/AdvReac Type Severity Reaction Status Date / Time No Known Allergies Allergy Verified 01/29/18 23:34 Home Medications Medication Instructions Recorded Confirmed Type atorvastatin [Lipitor] 40 mg PO DAILY 01/30/18 01/30/18 History divalproex [Depakote] 500 mg PO BID 01/30/18 01/30/18 History Exam Vital signs: Vital Signs 01/29/18 23:34 Temperature 97.6 F Pulse Rate 68 Respiratory Rate 16 Blood Pressure 131/61 Pulse Oximetry 98 Intake & Output 01/29/18 01/29/18 01/30/18 06:59 18:59 06:59 Intake Total 1050 / 1050 Balance 1050 / 1050 Weight 63.503 kg Intake: IV 1050 / 1050 Zosyn 3.375 GM Premix 50 ML @ 50 / 50 100 mls/hr IV.SIG ONCE ONE Rx#: [id number] NS Inj 1,000 ML @ Wide Open IV. 1000 / 1000 SIG BOLUS ONE Rx#:[id number] Narrative: GENERAL: Patient sitting up in bed. Appears comfortable. Alert and oriented 3. SKIN: Warm and dry. HEAD: Atraumatic. Normocephalic. EYES: Pupils equal and round. No scleral icterus. No injection or drainage. ENT: No nasal bleeding or discharge. Mucous membranes pink and moist. NECK: Trachea midline. No JVD. CARDIOVASCULAR: Regular rate and rhythm. RESPIRATORY: No accessory muscle use. Clear to auscultation. Breath sounds equal bilaterally. GASTROINTESTINAL: Abdomen soft, non-tender, nondistended. Hepatic and splenic margins not palpable. No rebound or guarding. Patient states that tenderness has resolved after receiving pain meds in the ER. She says that she was tender previously during ER exam. MUSCULOSKELETAL: Extremities without clubbing, cyanosis, or edema. No obvious deformities. NEUROLOGICAL: Awake and alert. No obvious cranial nerve deficits. Motor grossly within normal limits. Five out of 5 muscle strength in the arms and legs. Normal speech. PSYCHIATRIC: Appropriate mood and affect; insight and judgment normal. Results - Labs CBC & Chem 7: 01/30/18 02:30 01/30/18 02:30 Labs: Short CBC 01/30/18 Range/Units 02:30 WBC 9.3 (4.0-11.0) th/mm3 Hgb 15.6 H (11.6-15.3) gm/dL Hct 45.6 (35.0-46.0) % Plt Count 219 (150-450) th/mm3 BMP 01/30/18 02:30 Sodium 145 Potassium 4.4 Chloride 113 H Carbon Dioxide 24.4 BUN 32 H Creatinine 0.82 Calcium 8.3 L Liver Function 01/30/18 Range/Units 02:30 Total Bilirubin 0.3 (0.2-1.0) mg/dL AST 23 (15-37) U/L ALT 30 (10-53) U/L Alkaline Phosphatase 65 (45-117) U/L Albumin 3.4 (3.4-5.0) g/dL Urine 01/30/18 Range/Units 03:12 Urine Color Yellow (Yellw/Straw) Urine Clarity Hazy H (Clear) Urine pH 5.0 (5.0-8.5) Ur Specific [place] 1.028 (1.002-1.035) Urine Protein Negative (Neg-Trace) mg/dL Urine Glucose (UA) Negative (Negative) mg/dL - Imaging Impressions Abdomen/Pelvis CT 01/30/18 02:09 CONCLUSION: 1. CT findings typical of acute cholecystitis in the proper clinical setting. Stones are present. 2. No other acute abnormality demonstrated. Aorta is atherosclerotic. Chest X-Ray 01/30/18 02:09 CONCLUSION: No evidence of acute cardiopulmonary disease. Caprini VTE Risk Assessment Caprini VTE Risk Assessment: No/Low Risk (score <= 1) Caprini Risk Assessment Model: Point Value = 1 Point Value = 2 Point Value = 3 Point Value = 5 Age 41-60 Minor surgery BMI > 25 kg/m2 Swollen legs Varicose veins or History of unexplained or recurrent spontaneous Oral contraceptives or hormone replacement Sepsis (< 1 month) Serious lung disease, including pneumonia (< 1 month) Abnormal pulmonary function Acute myocardial infarction Congestive heart failure (< 1 month) History of inflammatory bowel disease Medical patient at bed rest Age 61-74 Arthroscopic surgery Major open surgery (> 45 min) Laparoscopic surgery (> 45 min) Malignancy Confined to bed (> 72 hours) Immobilizing plaster cast Central venous access Age >= 75 History of VTE Family history of VTE Factor V Leiden Prothrombin [id number] Lupus anticoagulant Anticardiolipin antibodies Elevated serum homocysteine Heparin-induced thrombocytopenia Other congenital or acquired thrombophilia Stroke (< 1 month) Elective arthroplasty Hip, pelvis, or leg fracture Acute spinal cord injury (< 1 month) Prophylaxis Regimen: Total Risk Factor Score Risk Level Prophylaxis Regimen 0-1 Low Early ambulation 2 Moderate Order ONE of the following: *Sequential Compression Device (SCD) *Heparin 5000 units SQ BID 3-4 Higher Order ONE of the following medications: *Heparin 5000 units SQ TID *Enoxaparin/Lovenox 40 mg SQ daily (WT < 150 kg, CrCl > 30 mL/min) *Enoxaparin/Lovenox 30 mg SQ daily (WT < 150 kg, CrCl > 10-29 mL/min) *Enoxaparin/Lovenox 30 mg SQ BID (WT < 150 kg, CrCl > 30 mL/min) AND/OR *Sequential Compression Device (SCD) 5 or more Highest Order ONE of the following medications: *Heparin 5000 units SQ TID (Preferred with Epidurals) *Enoxaparin/Lovenox 40 mg SQ daily (WT < 150 kg, CrCl > 30 mL/min) *Enoxaparin/Lovenox 30 mg SQ daily (WT < 150 kg, CrCl > 10-29 mL/min) *Enoxaparin/Lovenox 30 mg SQ BID (WT < 150 kg, CrCl > 30 mL/min) AND *Sequential Compression Device (SCD) Assessment and Plan - Plan //Acute cholecystitis. As seen on CT. -Lipase within normal limits. -Symptoms have improved after IV narcotics, antibiotics. Will continue on IV fluids, antibiotics Gallbladder ultrasound pending. Consult general surgery //Hyperlipidemia. Chronic. Continue home meds. //Tobacco abuse. Chronic. Cessation counseling. //Hyperglycemia in the 120s. Likely secondary to stress. Will check A1c //Seizure disorder. Chronic. Continue home meds. Discussed Condition With: Patient, ED physician, daughter at bedside
--- NOTE | 2018-01-30 08:03 | US ---
EXAM DATE: 01/30/2018 7:52 AM EDT AGE/SEX: 52 years / Female INDICATIONS: Right upper quadrant pain. CLINICAL DATA: This is the patient's initial encounter. Patient reports that signs and symptoms have been present for 1 day and indicates a pain score of 0/10. MEDICAL/SURGICAL HISTORY: Hypercholesterolemia. Cerebrovascular accident. Epilepsia. section. COMPARISON: [facility] [place], CT ABDOMEN & PELVIS W CONTRAST, 01/30/2018. . MEASUREMENTS: Liver:__ 15.9 cm. Common Bile Duct:__ 6mm. FINDINGS: Liver: Normal echotexture without focal lesion or ductal dilatation. Portal Vein: Hepatopedal flow seen in portal vein. Common Duct: No intraluminal mass or stone visualized. Gallbladder: Multiple shadowing gallstones in the gallbladder with the largest measuring up to 1.6 c m. There is gallbladder wall thickening measuring up to 5 mm. There are several echogenic foci in the gallbladder wall with posterior dirty shadowing and ring down artifact concerning for foci of air. T here is trace pericholecystic fluid. Pancreas: The visualized portions are within normal limits Right Kidney: Normal echotexture and cortical thickness. No mass or hydronephrosis. Other: None CONCLUSION: 1. Cholelithiasis with sonographic findings concerning for acute cholecystitis. There are several fo aydee regions of possible air in the anterior gallbladder wall concerning for possible developing emphy sematous cholecystitis. This report has been marked for urgent call to requesting physician. Electronically signed by: Hans Chandler MD 01/30/2018 8:02 AM EDT
[2018-01-30] MEDS: Divalproex 500 MG DR Tablet PO SCH ×2 (10:06→21:57)
--- NOTE | 2018-01-30 10:19 | P.PN ---
Subjective Interval history: Follow-up visit abdominal pain, acute cholecystitis. Patient seen and examined today. Daughter at the bedside. Reports abdominal pain is improved. Complains of tinnitus. Denies pain and discomfort. Denies SOB/ dyspnea. Denies chest pain, palpitations, dizziness. Denies fevers, chills, n/v/d. Denies dysuria. Physical Exam Vital signs: Vital Signs 01/29/18 23:34 01/30/18 01:30 01/30/18 03:30 Temperature 97.6 F Pulse Rate 68 76 68 Respiratory Rate 16 18 18 Blood Pressure 131/61 154/67 H 117/58 L Pulse Oximetry 98 97 98 01/30/18 05:47 01/30/18 06:28 01/30/18 07:08 Temperature 98.4 F Pulse Rate 76 68 Respiratory Rate 18 16 18 Blood Pressure 112/53 L 97/51 L Pulse Oximetry 98 96 01/30/18 07:44 Temperature 97.7 F Pulse Rate 56 L Respiratory Rate 18 Blood Pressure 94/50 L Pulse Oximetry 94 L Intake & Output 01/29/18 01/30/18 01/30/18 18:59 06:59 18:59 Intake Total 1050 / 1050 Balance 1050 / 1050 Weight 62.7 kg Intake: IV 1050 / 1050 Zosyn 3.375 GM Premix 50 ML @ 50 / 50 100 mls/hr IV.SIG ONCE ONE Rx#: [id number] NS Inj 1,000 ML @ Wide Open IV. 1000 / 1000 SIG BOLUS ONE Rx#:[id number] Other: Weight On Admission 62.7 kg Narrative: GENERAL: This is a well-nourished, well-developed patient, in no apparent distress. SKIN: Warm and dry HEENT: Normocephalic. Pupils equal round and reactive. Nose without bleeding. Airway patent. NECK: Trachea midline. Supple. CARDIOVASCULAR: Regular rate and rhythm without murmurs, gallops, or rubs. RESPIRATORY: Clear to auscultation. Breath sounds equal bilaterally. No wheezes , rales, or rhonchi. GASTROINTESTINAL: Abdomen soft. Bowel Sounds normoactive x4. Nontender to palpate. MUSCULOSKELETAL: Extremities without clubbing, cyanosis, or edema. NEUROLOGICAL: Awake and alert. Oriented to time, place, person. No focal neuro deficit. Moves all extremities. Normal speech. Results - Labs CBC & Chem 7: 01/30/18 02:30 01/30/18 02:30 Laboratory Results - last 24 hr 01/30/18 01/30/18 01/30/18 02:30 02:30 03:12 WBC 9.3 RBC 5.32 H Hgb 15.6 H Hct 45.6 MCV 85.8 MCH 29.3 MCHC 34.1 RDW 15.2 Plt Count 219 MPV 8.9 Neut % (Auto) 60.9 Lymph % (Auto) 29.9 [place] % (Auto) 6.3 Eos % (Auto) 2.0 Baso % (Auto) 0.9 Neut # (Auto) 5.7 Lymph # (Auto) 2.8 [place] # (Auto) 0.6 Eos # (Auto) 0.2 Baso # (Auto) 0.1 WBC Differential . Differential Comment Auto diff final Sodium 145 Potassium 4.4 Chloride 113 H Carbon Dioxide 24.4 Anion Gap 8 BUN 32 H Creatinine 0.82 Estimated GFR 73 L Random Glucose 125 H Calcium 8.3 L Total Bilirubin 0.3 AST 23 ALT 30 Alkaline Phosphatase 65 Total Protein 7.5 Albumin 3.4 Lipase 119 Urine Color Yellow Urine Clarity Hazy H Urine pH 5.0 Ur Specific [place] 1.028 Urine Protein Negative Urine Glucose (UA) Negative Urine Ketones Trace H Urine Occult Blood Moderate H Urine Nitrate Negative Urine Bilirubin Negative Urine Urobilinogen Less than 2 Ur Leukocyte Esterase Negative Urine RBC 21 H Urine WBC 2 Ur Squamous Epith Cells <1 Hyaline Casts 3 Urine Mucus Few H Micro UA Comment Culture not ind Ur Microscopic Review Not Reportable Urine Culture Comments Culture not ind - Imaging Impressions Abdomen/Pelvis CT 01/30/18 02:09 CONCLUSION: 1. CT findings typical of acute cholecystitis in the proper clinical setting. Stones are present. 2. No other acute abnormality demonstrated. Aorta is atherosclerotic. Chest X-Ray 01/30/18 02:09 CONCLUSION: No evidence of acute cardiopulmonary disease. Gallbladder Ultrasound 01/30/18 05:41 CONCLUSION: 1. Cholelithiasis with sonographic findings concerning for acute cholecystitis. There are several focal regions of possible air in the anterior gallbladder wall concerning for possible developing emphysematous cholecystitis. This report has been marked for urgent call to requesting physician. Assessment and Plan - Plan 52-year-old female with a history of CVA, seizures who presents with constant sharp epigastric abdominal pain radiating to bilateral back Acute cholecystitis. -CT of the abdomen and pelvis showed typical of acute cholecystitis in proper clinical settings. Stones are present. No acute abnormality demonstrated. Aorta is atherosclerotic. -Gallbladder ultrasound showed cholelithiasis with sonographic findings concerning for acute cholecystitis. There are several focal regions of possible air in the anterior gallbladder wall concerning for possible developing emphysematous cholecystitis. -Neurosurgery consulted for further evaluation recommendation -On exam no tenderness palpated in the abdomen. Patient reports abdominal pain has significantly improved -Continue antibiotic Zosyn -IV fluids. Keep n.p.o. for now until seen by general surgery HTN HLD -Continue home medications for now Epilepsy -Continue Depakote DVT prop SCDs Code Status: Full code Discussed Condition With: Patient, nursing Discharge Planning: Plan to DC home when clinically improved. Pending surgical consult
[2018-01-30] MEDS: Sod Chloride 0.9% Inj 1,000 ML IV.CONT SCH ×2 (12:35→18:58)
[2018-01-30] MEDS: Piperacil/Tazo 3.375 GM Premix 50 ML IV.SIG SCH ×2 (12:35→19:11)
[2018-01-30] MEDS ORDERED: Morphine Sulfate Inj 2 MG/ML Vial IV.PUSH PRN (17:09)
[2018-01-30] MEDS ORDERED: Morphine Inj 4 MG/ML Vial IV.PUSH PRN (17:10)
[2018-01-30 17:27] LABS: Hemoglobin A1c 5.1 % (4.3-6.0)
--- NOTE | 2018-01-30 21:19 | MB ---
cc: Joe Porras MD DATE: 01/30/2018 REASON FOR CONSULTATION: Cholecystitis. HISTORY OF PRESENT ILLNESS: The patient is a 52-year-old female with a history of seizures, who presented with sharp epigastric abdominal pain radiating through to the back that began at 8:30 yesterday evening. She had nausea and nonbloody vomiting at that time. She denies any fevers, chills, or change in bowel habits. REVIEW OF SYSTEMS: Her other review of systems are negative except for history of CVA and seizures. She reports that CVA was diagnosed in September this year. OTHER MEDICAL HISTORY: Includes C-sections x2 with one as an emergency, history of epileptic seizures and hypercholesterolemia. FAMILY HISTORY: Noncontributory. SOCIAL HISTORY: Tobacco history: She is an everyday smoker. She has no history of other abuse and she does not drink alcohol. PHYSICAL EXAMINATION: GENERAL: Reveals a female in no acute distress. VITAL SIGNS: BP 115/61, pulse 49, respirations 18, temperature 98.2, 97% saturation on room air. HEENT: Sclerae are anicteric. Pupils are reactive. NECK: Supple. The patient has very poor dentition with multiple caries. CHEST: Clear to auscultation. CARDIOVASCULAR: Reveals regular rate and rhythm without murmurs. ABDOMEN: Soft with some epigastric and right upper quadrant tenderness without guarding. There is no rebound. The patient has a well-healed infraumbilical midline incision. Pulses are present. NEUROLOGIC: Nonfocal. LABORATORY VALUES: WBCs are 9.3, hemoglobin 15.6, platelets 219,000. Chemistries demonstrate glucose slightly high at 125. Liver function tests are all within normal limits. Potassium 4.4, BUN and creatinine are 32 and 0.82. Urine has 21 red cells. Culture is not indicated. Imaging demonstrates a gallbladder ultrasound performed this morning with no intraluminal mass or stone visualized in the common duct. Liver was with normal echotexture. The common bile duct is 6 mm. There are multiple shadowing gallstones in the gallbladder with mild gallbladder wall thickening up to 5 mm. There is a trace of pericholecystic fluid as well. CT of the abdomen and pelvis demonstrates homogeneous density in the liver with no filling defects. The biliary tree demonstrates no dilatation and wall thickening and pericholecystic fluid in the gallbladder with multiple 1 cm stones. ASSESSMENT: Acute cholecystitis. PLAN: I have discussed surgery with the patient and risks including, but not limited to bleeding, infection, bile duct injury, bowel injury, possible need for postoperative endoscopy, ERCP or drainage as well as need for reoperation. I have discussed remedies, consequences, alternatives and convalescence with the patient; she vocalizes understanding and agrees to proceed. I will get the patient on for surgery as soon as operating room time is available; I am attempting to perform this tomorrow, but at the moment, no operative time is available until late in the evening. I have discussed this with the patient as well. Joe Proras MD [facility]/ct , 07:04 PM , 07:13 PM
--- NOTE | 2018-01-30 21:22 | ECG ---
Date Performed: 01/30/2018 Time Performed: 01:31:35 PTAGE: 52 years EKG: Sinus rhythm NORMAL ECG PREVIOUS TRACING : 09/18/2017 04.02 Since the previous tracing, no significant change noted DOCTOR: Miquel Pimentel Interpretating Date/Time 01/30/2018 21:20:13
[2018-01-31] MEDS: Piperacil/Tazo 3.375 GM Premix 50 ML IV.SIG SCH ×4 (00:27→19:01)
[2018-01-31] MEDS: Sod Chloride 0.9% Inj 1,000 ML IV.CONT SCH ×2 (01:40→14:59)
[2018-01-31 05:38] LABS: Albumin 2.5 g/dL (3.4-5.0); Calcium 7.4 mg/dL (8.5-10.1); Carbon Dioxide 24.9 meq/L (21.0-32.0); Potassium 4.3 meq/L (3.5-5.1); Total Protein 5.8 g/dL (6.4-8.2)
[2018-01-31 06:20] LABS: Baso % (Auto) 0.6 % (0.0-2.0); Eos # (Auto) 0.3 th/mm3 (0.0-0.4); Eos % (Auto) 4.3 % (0.0-4.0); Hematocrit 42.3 % (35.0-46.0); Hemoglobin 13.8 gm/dL (11.6-15.3); Lymph # (Auto) 2.7 th/mm3 (1.0-4.8); Lymph % (Auto) 43.5 % (9.0-44.0); Mean Corpuscular HGB Conc 32.6 % (32.0-36.0); Mean Corpuscular Hemoglobin 28.5 pg (27.0-34.0); Mean Corpuscular Volume 87.4 fL (80.0-100.0); Mean Platelet Volume 8.8 fL (7.0-11.0); Mono # (Auto) 0.3 th/mm3 (0.0-0.9); Mono % (Auto) 4.8 % (0.0-8.0); Neut # (Auto) 2.9 th/mm3 (1.8-7.7); Neut % (Auto) 46.8 % (16.0-70.0); Platelet Count 162 th/mm3 (150-450); Red Blood Count 4.84 mil/mm3 (4.00-5.30); Red Cell Distribution Width 14.9 % (11.6-17.2); White Blood Count 6.3 th/mm3 (4.0-11.0)
--- NOTE | 2018-01-31 09:40 | P.PN ---
Subjective Interval history: Follow-up visit abdominal pain, acute cholecystitis. Patient seen and examined today. Reports she wants to take a shower. Otherwise, denies pain and discomfort. Denies SOB/ dyspnea. Denies chest pain, palpitations, dizziness. Denies fevers, chills, n/v/d. Denies dysuria. Physical Exam Vital signs: Vital Signs 01/30/18 11:07 01/30/18 15:37 01/30/18 20:00 Temperature 98.0 F 98.2 F 97.8 F Pulse Rate 84 49 L 55 L Respiratory Rate 20 18 18 Blood Pressure 104/51 L 115/61 134/60 Pulse Oximetry 98 97 96 01/31/18 00:00 01/31/18 03:48 01/31/18 07:39 Temperature 97.8 F 97.8 F 97.9 F Pulse Rate 55 L 54 L 45 L Respiratory Rate 19 20 Blood Pressure 134/60 130/60 119/55 L Pulse Oximetry 96 98 94 L Intake & Output 01/30/18 01/31/18 01/31/18 18:59 06:59 18:59 Intake Total 1270 / 1270 Output Total 0 / 0 Balance 0 / 0 1270 / 1270 Intake: IV 1150 / 1150 NS Inj 1,000 ML @ 100 mls/hr IV 1000 / 1000 .CONT .Q10H TREMAYNE Rx#:[id number] Zosyn 3.375 GM Premix 50 ML @ 150 / 150 100 mls/hr IV.SIG Q6H TREMAYNE Rx#: [id number] Oral 120 / 120 Output: Urine/Stool Mix 0 / 0 Other: # Voids 2 # Bowel Movements 4 # Incontinent Bowel Movements 0 Narrative: GENERAL: This is a well-nourished, well-developed patient, in no apparent distress. SKIN: Warm and dry HEENT: Normocephalic. Pupils equal round and reactive. Nose without bleeding. Airway patent. NECK: Trachea midline. Supple. CARDIOVASCULAR: Regular rate and rhythm without murmurs, gallops, or rubs. RESPIRATORY: Clear to auscultation. Breath sounds equal bilaterally. No wheezes , rales, or rhonchi. GASTROINTESTINAL: Abdomen soft. Bowel Sounds normoactive x4. Nontender to palpate. MUSCULOSKELETAL: Extremities without clubbing, cyanosis, or edema. NEUROLOGICAL: Awake and alert. Oriented to time, place, person. No focal neuro deficit. Moves all extremities. Normal speech. Results - Labs CBC & Chem 7: 01/31/18 04:35 01/31/18 04:35 Laboratory Results - last 24 hr 01/30/18 01/31/18 01/31/18 02:30 04:35 04:35 WBC 6.3 RBC 4.84 Hgb 13.8 Hct 42.3 MCV 87.4 MCH 28.5 MCHC 32.6 RDW 14.9 Plt Count 162 MPV 8.8 Neut % (Auto) 46.8 Lymph % (Auto) 43.5 [place] % (Auto) 4.8 Eos % (Auto) 4.3 H Baso % (Auto) 0.6 Neut # (Auto) 2.9 Lymph # (Auto) 2.7 [place] # (Auto) 0.3 Eos # (Auto) 0.3 Baso # (Auto) 0.0 WBC Differential . Differential Comment Auto diff final Hematology Comments Sodium 151 H Potassium 4.3 Chloride 118 H Carbon Dioxide 24.9 Anion Gap 8 BUN 22 H Creatinine 0.74 Estimated GFR 82 L Random Glucose 54 L Hemoglobin A1c 5.1 Calcium 7.4 L* D Prot Corrected Calcium 8.1 L Total Bilirubin 0.5 AST 188 H ALT 322 H Alkaline Phosphatase 84 Total Protein 5.8 L D Albumin 2.5 L D Assessment and Plan - Plan 52-year-old female with a history of CVA, seizures who presents with constant sharp epigastric abdominal pain radiating to bilateral back Acute cholecystitis. -CT of the abdomen and pelvis showed typical of acute cholecystitis in proper clinical settings. Stones are present. No acute abnormality demonstrated. Aorta is atherosclerotic. -Gallbladder ultrasound showed cholelithiasis with sonographic findings concerning for acute cholecystitis. There are several focal regions of possible air in the anterior gallbladder wall concerning for possible developing emphysematous cholecystitis. -Neurosurgery consulted for further evaluation recommendation -On exam no tenderness palpated in the abdomen. Patient reports abdominal pain has significantly improved -Continue antibiotic Zosyn -Seen by general surgery. Plan for cholecystectomy on Sunday. Unable to fit in the OR schedule. -Start with diet for now. Will DC IV fluids. HTN HLD -Continue home medications for now Epilepsy -Continue Depakote DVT prop SCDs Code Status: Full code Discussed Condition With: Patient, nursing Discharge Planning: Plan to DC home when clinically improved.
[2018-01-31] MEDS: Divalproex 500 MG DR Tablet PO SCH ×2 (11:20→21:31)
--- NOTE | 2018-01-31 16:19 | P.PNGS ---
Subjective Interval history: Resting in bed Hungry Physical Exam Vital signs: Vital Signs 01/30/18 20:00 01/31/18 00:00 01/31/18 03:48 Temperature 97.8 F 97.8 F 97.8 F Pulse Rate 55 L 55 L 54 L Respiratory Rate 18 19 Blood Pressure 134/60 134/60 130/60 Pulse Oximetry 96 96 98 01/31/18 07:39 01/31/18 12:00 01/31/18 16:00 Temperature 97.9 F 98.0 F 98.0 F Pulse Rate 45 L 44 L 43 L Respiratory Rate 20 16 16 Blood Pressure 119/55 L 139/65 133/62 Pulse Oximetry 94 L 95 99 Intake & Output 01/30/18 01/31/18 01/31/18 18:59 06:59 18:59 Intake Total 1270 / 1270 1000 / 1000 Output Total 0 / 0 Balance 0 / 0 1270 / 1270 1000 / 1000 Intake: IV 1150 / 1150 1000 / 1000 NS Inj 1,000 ML @ 100 mls/hr IV 1000 / 1000 1000 / 1000 .CONT .Q10H TREMAYNE Rx#:[id number] Zosyn 3.375 GM Premix 50 ML @ 150 / 150 0 / 0 100 mls/hr IV.SIG Q6H TREMAYNE Rx#: [id number] Oral 120 / 120 Output: Urine/Stool Mix 0 / 0 Other: # Voids 2 # Bowel Movements 4 # Incontinent Bowel Movements 0 Narrative: Alert and awake Abd: soft; minimally tender in RUQ - Routine Abdominal Exam Present: soft (nontender) Assessment and Plan - Plan 52 year old female with cholecystitis -Plan for laparoscopic cholecystectomy Sunday -Low fat diet; NPO after MN Sunday -Patient agrees with plan -Discussed with ALISSON Viveros No time available for surgery today Will attempt to move up if time available tomorrow. Patient aware. The exam, history, and the medical decision-making described in the above note were completed with the assistance of the mid-level provider. I reviewed and agree with the findings presented. I attest that I had a [id number] encounter with the patient on the same day, and personally performed and documented my assessment and findings in the medical record.
[2018-02-01] MEDS: Piperacil/Tazo 3.375 GM Premix 50 ML IV.SIG SCH ×4 (00:08→17:31)
[2018-02-01] MEDS ORDERED: Sodium Chlor 0.9% Inj 500 ML IV.SIG SCH (01:30)
[2018-02-01 07:02] LABS: Baso % (Auto) 0.4 % (0.0-2.0); Eos # (Auto) 0.2 th/mm3 (0.0-0.4); Eos % (Auto) 4.2 % (0.0-4.0); Hematocrit 39.5 % (35.0-46.0); Hemoglobin 13.2 gm/dL (11.6-15.3); Lymph % (Auto) 51.5 % (9.0-44.0); Mean Corpuscular HGB Conc 33.6 % (32.0-36.0); Mean Corpuscular Hemoglobin 28.9 pg (27.0-34.0); Mean Corpuscular Volume 86.1 fL (80.0-100.0); Mean Platelet Volume 8.5 fL (7.0-11.0); Mono # (Auto) 0.4 th/mm3 (0.0-0.9); Mono % (Auto) 6.9 % (0.0-8.0); Neut # (Auto) 2.1 th/mm3 (1.8-7.7); Platelet Count 162 th/mm3 (150-450); Red Blood Count 4.59 mil/mm3 (4.00-5.30); Red Cell Distribution Width 14.8 % (11.6-17.2); White Blood Count 5.7 th/mm3 (4.0-11.0)
[2018-02-01 07:26] LABS: Anion Gap 9 meq/L (5-15); Blood Urea Nitrogen 21 mg/dL (7-18); Calcium 7.6 mg/dL (8.5-10.1); Carbon Dioxide 24.5 meq/L (21.0-32.0); Chloride 114 meq/L (98-107); Glomerular Filtration Rate Greater Than 89 mL/min (>89); Glucose,Random 69 mg/dL (74-106); Potassium 4.3 meq/L (3.5-5.1); Sodium 147 meq/L (136-145)
[2018-02-01] MEDS: Divalproex 500 MG DR Tablet PO SCH ×2 (08:52→22:09)
--- NOTE | 2018-02-01 12:50 | P.PN ---
Subjective Interval history: Follow-up visit abdominal pain, acute cholecystitis. Patient seen and examined today. Reports she is doing okay. Otherwise, denies pain and discomfort. Denies SOB/ dyspnea. Denies chest pain, palpitations, dizziness. Denies fevers , chills, n/v/d. Denies dysuria. Physical Exam Vital signs: Vital Signs 01/31/18 16:00 01/31/18 20:00 02/01/18 00:00 Temperature 98.0 F 98.4 F Pulse Rate 43 L 51 L 57 L Respiratory Rate 16 17 17 Blood Pressure 133/62 116/56 L 88/51 L Pulse Oximetry 99 97 97 02/01/18 04:00 02/01/18 08:29 02/01/18 12:08 Temperature 98.7 F 98.2 F 97.9 F Pulse Rate 52 L 70 70 Respiratory Rate 16 20 20 Blood Pressure 108/56 L 128/60 120/62 Pulse Oximetry 98 98 96 Intake & Output 01/31/18 02/01/18 02/01/18 18:59 06:59 18:59 Intake Total 2500 / 2500 1440 / 1440 50 / 50 Output Total 200 / 200 Balance 2500 / 2500 1240 / 1240 50 / 50 Weight 62.596 kg Intake: IV 1000 / 1000 1200 / 1200 50 / 50 NS Inj 1,000 ML @ 100 mls/hr IV 1000 / 1000 500 / 500 .CONT .Q10H TRE[facility] Rx#:[id number] Zosyn 3.375 GM Premix 50 ML @ 0 / 0 200 / 200 50 / 50 100 mls/hr IV.SIG Q6H TRE[facility] Rx#: [id number] NS Inj 500 ML @ Wide Open IV. 500 / 500 SIG BOLUS TREMAYNE Rx#:[id number] Oral 1500 / 1500 240 / 240 Output: Urine 200 / 200 Other: # Voids 1 Date of Last Bowel Movement 01/31/18 # Bowel Movements 2 Narrative: GENERAL: This is a well-nourished, well-developed patient, in no apparent distress. SKIN: Warm and dry HEENT: Normocephalic. Pupils equal round and reactive. Nose without bleeding. Airway patent. NECK: Trachea midline. Supple. CARDIOVASCULAR: Regular rate and rhythm without murmurs, gallops, or rubs. RESPIRATORY: Clear to auscultation. Breath sounds equal bilaterally. No wheezes , rales, or rhonchi. GASTROINTESTINAL: Abdomen soft. Bowel Sounds normoactive x4. Mild tenderness to palpate midepigastric region MUSCULOSKELETAL: Extremities without clubbing, cyanosis, or edema. NEUROLOGICAL: Awake and alert. Oriented to time, place, person. No focal neuro deficit. Moves all extremities. Normal speech. Results - Labs CBC & Chem 7: 02/01/18 06:10 02/01/18 06:10 Laboratory Results - last 24 hr 02/01/18 02/01/18 06:10 06:10 WBC 5.7 RBC 4.59 Hgb 13.2 Hct 39.5 MCV 86.1 MCH 28.9 MCHC 33.6 RDW 14.8 Plt Count 162 MPV 8.5 Neut % (Auto) 37.0 Lymph % (Auto) 51.5 H Stanley % (Auto) 6.9 Eos % (Auto) 4.2 H Baso % (Auto) 0.4 Neut # (Auto) 2.1 Lymph # (Auto) 3.0 Stanley # (Auto) 0.4 Eos # (Auto) 0.2 Baso # (Auto) 0.0 WBC Differential . Differential Comment Auto diff final Sodium 147 H Potassium 4.3 Chloride 114 H Carbon Dioxide 24.5 Anion Gap 9 BUN 21 H Creatinine 0.68 Estimated GFR Greater than 89 Random Glucose 69 L Calcium 7.6 L Assessment and Plan - Plan 52-year-old female with a history of CVA, seizures who presents with constant sharp epigastric abdominal pain radiating to bilateral back Acute cholecystitis. -CT of the abdomen and pelvis showed typical of acute cholecystitis in proper clinical settings. Stones are present. No acute abnormality demonstrated. Aorta is atherosclerotic. -Gallbladder ultrasound showed cholelithiasis with sonographic findings concerning for acute cholecystitis. There are several focal regions of possible air in the anterior gallbladder wall concerning for possible developing emphysematous cholecystitis. -Neurosurgery consulted for further evaluation recommendation -On exam no tenderness palpated in the abdomen. Patient reports abdominal pain has significantly improved -Continue antibiotic Zosyn. -Seen by general surgery. Plan for cholecystectomy Tomorrow. Unable to fit in the OR schedule yesterday. -NPO After midnight HTN HLD -Continue home medications for now Epilepsy -Continue Depakote DVT prop SCDs Code Status: Full code Discussed Condition With: Patient, nursing Discharge Planning: Plan to DC home when clinically improved.
--- NOTE | 2018-02-01 14:52 | P.PNGS ---
Subjective Interval history: Resting in bed; c/o headache Physical Exam Vital signs: Vital Signs 01/31/18 16:00 01/31/18 20:00 02/01/18 00:00 Temperature 98.0 F 98.4 F Pulse Rate 43 L 51 L 57 L Respiratory Rate 16 17 17 Blood Pressure 133/62 116/56 L 88/51 L Pulse Oximetry 99 97 97 02/01/18 04:00 02/01/18 08:29 02/01/18 12:08 Temperature 98.7 F 98.2 F 97.9 F Pulse Rate 52 L 70 70 Respiratory Rate 16 20 20 Blood Pressure 108/56 L 128/60 120/62 Pulse Oximetry 98 98 96 Intake & Output 01/31/18 02/01/18 02/01/18 18:59 06:59 18:59 Intake Total 2500 / 2500 1440 / 1440 50 / 50 Output Total 200 / 200 Balance 2500 / 2500 1240 / 1240 50 / 50 Weight 62.596 kg Intake: IV 1000 / 1000 1200 / 1200 50 / 50 NS Inj 1,000 ML @ 100 mls/hr IV 1000 / 1000 500 / 500 .CONT .Q10H TRE[facility] Rx#:[id number] Zosyn 3.375 GM Premix 50 ML @ 0 / 0 200 / 200 50 / 50 100 mls/hr IV.SIG Q6H TRE[facility] Rx#: [id number] NS Inj 500 ML @ Wide Open IV. 500 / 500 SIG BOLUS TREMAYNE Rx#:[id number] Oral 1500 / 1500 240 / 240 Output: Urine 200 / 200 Other: # Voids 1 Date of Last Bowel Movement 01/31/18 # Bowel Movements 2 Narrative: Alert and awake Abd: soft; minimal RUQ tenderness Assessment and Plan - Assessment (1) Acute cholecystitis Code(s): K81.0 - Acute cholecystitis Status: Acute - Plan 52 year old female with cholecystitis -Plan for laparoscopic cholecystectomy tomorrow morning -Low fat diet; NPO after MN -Obtain consents -Patient agrees with plan Abdomen benign GAR discussed with patient, who vocalizes understanding and agrees to proceed. The exam, history, and the medical decision-making described in the above note were completed with the assistance of the mid-level provider. I reviewed and agree with the findings presented. I attest that I had a [id number] encounter with the patient on the same day, and personally performed and documented my assessment and findings in the medical record.
[2018-02-02] MEDS: Piperacil/Tazo 3.375 GM Premix 50 ML IV.SIG SCH ×3 (00:05→11:04)
[2018-02-02] MEDS ORDERED: Chlorhexidine Gluconate 2% 1 Pack (2 Cloths) TOPICAL ONE (00:25)
[2018-02-02] MEDS ORDERED: Metoprolol Tartrate 25 MG Tablet PO ONE (00:25)
[2018-02-02] MEDS ORDERED: Sodium Chlor 0.9% Inj 500 ML IV.SIG SCH (01:00)
[2018-02-02] MEDS ORDERED: Bupivacaine/Epinephrine Inj 0.25% 50 ML Vial ONE (07:29)
[2018-02-02] MEDS ORDERED: Famotidine PF Inj 20 MG/2 ML Vial ONE (07:41)
[2018-02-02] MEDS ORDERED: Sugammadex Inj 200 MG/2 ML Vial IV.PUSH ONE (08:24)
[2018-02-02] MEDS ORDERED: Dexmedetomidine Inj 200 MCG/2 ML Vial ONE (08:25)
[2018-02-02] MEDS ORDERED: fentaNYL Citrate Inj 100 MCG/2 ML Ampul ONE (09:07)
[2018-02-02] MEDS ORDERED: *Meperidine Inj 25 MG/ML Vial PERIprocedural Use ONLY ONE (09:11)
--- NOTE | 2018-02-02 09:18 | P.OP ---
- Preoperative Diagnosis (1) Acute cholecystitis - Postoperative Diagnosis (1) Acute cholecystitis Date of procedure: 02/02/18 Procedure: Laparoscopic cholecystectomy Anesthesia: KELVIN Surgeon: Joe Porras MD Director Economic: Deborah Tomlinson CFA Estimated blood loss (mL): 20 IV fluids (mL): 700 Pathology: other (Gallbladder and contents to pathology) Operation and Findings: Patient was taken to the operating room and placed on the operating table in the supine position. After an adequate level of general endotracheal anesthesia was achieved the abdomen was prepped and draped. Timeout was taken, confirming correct patient, site, and procedure to be performed. Skin and subcutaneous tissue was infiltrated with local anesthetic and an incision made in the umbilicus and carried through the fascia sharply. The peritoneal cavity was directly visualized. A balloon trocar was inserted and the balloon inflated. The abdomen was insufflated. The patient was placed in reverse Trendelenburg position. Three 5 mm trocars were then placed in the right upper quadrant with the first to the right of the falciform ligament and second and third in the subcostal region. All entered the abdominal cavity under direct vision uneventfully. The fundus of the gallbladder was then grasped and retracted up and over the dome of the liver. The cystic duct- infundibular junction and cystic artery were both circumferentially dissected. The cystic artery was very diminutive. This was doubly clipped proximally, singly clipped on the gallbladder side and divided. The more distal clip came off the very small artery and this was just removed, as there was no bleeding whatsoever from the stump. As the patient had normal liver function tests and normal appearing anatomy and a nondilated common bile duct, cholangiogram was not obtained. The cystic duct was then doubly clipped distally, singly clipped on the gallbladder side, and divided. The gallbladder was dissected off of the liver bed with electrodissection. The gallbladder was placed into an Endo Catch device and removed via the umbilical port while observing via the upper 5 mm trocar site. The specimen was passed off the table. The upper abdomen was revisualized and small bleeding points on the liver bed were treated with electrocautery. At this point all irrigation was aspirated from the abdominal cavity. The cystic artery stump, cystic duct stump and liver bed were all clean and dry. Insufflation was discontinued and the upper abdominal trocars removed under direct vision. The laparoscope and umbilical port were then removed. The fascia was closed in the umbilicus with simple interrupted and [id number] 0 Vicryl suture. The remaining local anesthetic was injected into each of the trocar sites and the skin closed at each site with 4-0 Vicryl in an interrupted buried fashion. All sites were dressed with Steri-Strips. The patient was extubated and taken back to the recovery room in stable condition. Sponge and needle counts were reported to be correct.
--- NOTE | 2018-02-02 09:36 | P.DS ---
Date of admission: 01/30/18 05:46 Primary care physician: UNKNOWN Attending physician on discharge: Errol Mancilla Anticipated date of discharge: 02/02/18 Brief History from admission: 52-year-old female with a history of CVA, seizures who presents with constant sharp epigastric abdominal pain radiating to bilateral back starting around 8: 30 PM, accompanied by nausea with nonbloody vomiting.Patient denies any chest pain or shortness of breath. Denies any fevers or chills. Patient update on day of discharge: She is seen and examined today. Status post cholecystectomy. States she is doing well. Sore but doing good. Denies SOB/ dyspnea. Denies chest pain, palpitations, headaches, dizziness. Denies fevers, chills, n/v/d. Denies dysuria. DS: Diagnosis - Discharge Diagnosis (1) Acute cholecystitis Status: Acute DS: Medications - Discharge Medications Prescriptions: hydrocodone-acetaminophen [Loop] 1 tab PO Q4H PRN 14 Days #20 tab PRN Reason: Acute Pain DS: Summary Hospital Course: 52-year-old female with a history of CVA, seizures who presents with constant sharp epigastric abdominal pain radiating to bilateral back. CT of the abdomen and pelvis showed typical of acute cholecystitis in proper clinical settings. Stones are present. No acute abnormality demonstrated. Aorta is atherosclerotic. Gallbladder ultrasound showed cholelithiasis with sonographic findings concerning for acute cholecystitis. There are several focal regions of possible air in the anterior gallbladder wall concerning for possible developing emphysematous cholecystitis. General surgery consulted for further evaluation recommendation. Antibiotics Zosyn has been provided with the patient. Patient went for cholecystectomy laparoscopically today. Uneventful post procedure. She will continue with her Depakote medication as well because BP medications at home. She was cleared by general surgery to be discharged in the afternoon post op. Pain medication provided by the surgical team. Patient has met maximal benefits of hospitalization. Clinically stable for discharge. - Time Spent with Patient Total time spent providing and/or coordinating discharge services: Less than 30 minutes - Quality: VTE Deep Vein Thrombosis/Pulmonary Embolism Present on Admission: No Exam Vital signs: Vital Signs 02/01/18 12:08 02/01/18 17:34 02/01/18 20:00 Temperature 97.9 F 98.7 F 97.9 F Pulse Rate 70 50 L 48 L Respiratory Rate 20 20 20 Blood Pressure 120/62 127/59 L 114/57 L Pulse Oximetry 96 97 98 02/02/18 00:00 02/02/18 04:00 02/02/18 08:00 Temperature 98.1 F 97.7 F 98.1 F Pulse Rate 49 L 50 L 48 L Respiratory Rate 16 14 18 Blood Pressure 136/60 129/59 L 121/58 L Pulse Oximetry 98 95 95 02/02/18 08:58 02/02/18 09:00 02/02/18 09:15 Temperature 97.5 F L Pulse Rate 68 69 60 Respiratory Rate 20 18 20 Blood Pressure 115/55 L 113/53 L 114/58 L Pulse Oximetry 94 L 95 99 Intake & Output 02/01/18 02/02/18 02/02/18 18:59 06:59 18:59 Intake Total 100 / 100 870 / 870 700 / 700 Output Total 20 / 20 Balance 100 / 100 870 / 870 680 / 680 Weight 70.6 kg Intake: IV 100 / 100 150 / 150 Zosyn 3.375 GM Premix 50 ML @ 100 / 100 150 / 150 100 mls/hr IV.SIG Q6H [facility]RE[facility] Rx#: [id number] Oral 720 / 720 Anesthesia Amount 700 / 700 Output: Estimated Blood Loss 20 / 20 Other: # Voids 4 Date of Last Bowel Movement 02/02/18 # Bowel Movements 4 Narrative: GENERAL: This is a well-nourished, well-developed patient, in no apparent distress. SKIN: Warm and dry HEENT: Normocephalic. Pupils equal round and reactive. Nose without bleeding. Airway patent. NECK: Trachea midline. Supple. CARDIOVASCULAR: Regular rate and rhythm without murmurs, gallops, or rubs. RESPIRATORY: Clear to auscultation. Breath sounds equal bilaterally. No wheezes , rales, or rhonchi. GASTROINTESTINAL: Abdomen soft. Bowel Sounds normoactive x4. Mild tenderness to palpate. Laparoscopic sites clean dry intact except for umbilicus area soiled but Steri-Strips intact. MUSCULOSKELETAL: Extremities without clubbing, cyanosis, or edema. NEUROLOGICAL: Awake and alert. Oriented to time, place, person. No focal neuro deficit. Moves all extremities. Normal speech. Results Procedures completed during hospitalization: Status post laparoscopic cholecystectomy Pending studies at discharge: Pending at discharge 02/02/18 Surgical [PTH] Routine - Impressions ITS Impressions Abdomen/Pelvis CT 01/30/18 02:09 CONCLUSION: 1. CT findings typical of acute cholecystitis in the proper clinical setting. Stones are present. 2. No other acute abnormality demonstrated. Aorta is atherosclerotic. Chest X-Ray 01/30/18 02:09 CONCLUSION: No evidence of acute cardiopulmonary disease. Gallbladder Ultrasound 01/30/18 05:41 CONCLUSION: 1. Cholelithiasis with sonographic findings concerning for acute cholecystitis. There are several focal regions of possible air in the anterior gallbladder wall concerning for possible developing emphysematous cholecystitis. This report has been marked for urgent call to requesting physician. Discharge Plan - Discharge Disposition Patient Disposition: Discharge Home - Discharge Condition Condition: Stable - Discharge Order Discharge Orders: Discharge Order (Routine); Ordered 02/02/18 Ordered By: Joe Porras Hospitalist Clear for Discharge (Routine); Ordered 02/02/18 Ordered By: Marva Bolanos - Discharge Details Discharge Comment: DC after early ambulation. - Physicians Team Primary Care Provider: UNKNOWN, Attending Provider: Reno Mancilla Other Providers: Joe Porras MD
[2018-02-02] MEDS: Divalproex 500 MG DR Tablet PO SCH (11:03)
[2018-02-02 16:15] VITALS: BP 122/60; PULSE 48; RESP 18; TEMP 97.9; O2SAT 95
[2018-02-02] MEDS ORDERED: Esmolol Bolus Inj 100 MG/10 ML Vial IV.PUSH ONE (18:52)
[2018-02-02] MEDS ORDERED: Lidocaine PF 1% Inj 5 ML Syringe INFILTRATN ONE (18:52)
[2018-02-02] MEDS ORDERED: Ketorolac Inj 30 MG/ML (IVP) Vial IV.PUSH ONE (18:52)
== END 2018-02-02 18:53 | disposition home or self-care (01) ==
LOC: NEPE 23:12 → NEDA 01-30 05:46 → NEPHCDU 01-30 06:39 → N06 02-01 17:01
PROVIDERS: ADMIT Family Medicine; ATTEND Family Medicine